=== PATIENT | female | born 1950 | race Caucasian/White ===

== ENCOUNTER 2018-07-28 13:24 | Inpatient (IN) | payer BC, MEDICARE ==
[~2018-07-28] VITALS: Ht 170.2 cm; Wt 127.0 kg
--- NOTE | ~2018-07-28 | HEMODYNAMI ---
PATIENT:HERO ROBERSON MEDICAL RECORD: [id number] : 48 LOCATION:D.MS [id number] ADMISSION DATE: 07/28/18 Generatedon:07/30/201811:33 Patient name: HERO ROBERSON Patient #: [id number] SSN: D OB: 1950 Date of study: 07/30/2018 Page: Of Hemodynamic Procedure Report Patient Data Patient Demographics Procedure consent was obtained First Name: HERO Gender: Female Last Name: DA : 1950 Patient #: [id number] Age: 68 year(s) Race: Unknown Additional ID: [id number] Contact details [address]: [address] [place] [address] State: [place] City: [place] Zip code: [address] Past Medical History Allergies: No known allergies Admission Admission Data Admission Date: 07/28/2018 Admission Time: 17:47 Room #: [id number] Lab Results Lab Result Date: 07/30/2018 Lab Result Time: 5:13 Biochemistry Name Units Result Min Max BUN mg/dl 18 --(---*)-- 7 18 Creatinine mg/dl 0.6 --(*---)-- 0.6 1.3 CBC Name Units Result Min Max Hematocrit % 41 -*(----)-- 42 54 Hemoglobin g/dl 12.9 -*(----)-- 13.5 17.5 Procedure Procedure Types Cath Procedure Diagnostic Procedure Right Heart RHC and LHC w/Coronaries Sedation Charges Moderate Sedation up to 30 minutes PCI Procedure Coronary Stent Coronary Stent Initial Procedure Description Procedure Date Procedure Date: 07/30/2018 Procedure Start Time: 11:00 Procedure End Time: 11:33 Procedure Staff Name Function Bi Benavides MD Performing Physician Bryce Mercedes RT Monitor Alejandra Novak RN Nurse Nazanin Calles RT Scrub Procedure Data Cath Procedure Fluoroscopy Diagnostic fluoroscopy Total fluoroscopy Time: 6.1 time: 6.1 min min Diagnostic fluoroscopy Total fluoroscopy dose: 717 dose: 717 mGy mGy Contrast Material Contrast Material Type Amount (ml) Isovue 300 112 Entry Location Entry Primary Successful Side Size Upsize Upsize Entry Closure Succes sful Closure Location (Fr) 1 (Fr) 2 (Fr) Remarks Device Remarks Femoral Right 5 Fr 6 Fr Exoseal artery Short Femoral Right 7 Fr Exoseal vein Short Estimated blood loss: 10 ml Diagnostic catheters Device Type Used For End Catheter Placement SWAN 7Fr Thermodilution Procedure cather (131F7P) MULTIPACK JL 4.0 5Fr Procedure catheter MULTIPACK 3DRC 5Fr Procedure catheter MULTIPACK Pigtail 5 Fr Procedure catheter Procedure Complications No complications Procedure Medications Medication Administration Route Dosage 0.9% NaCl I.V. 100 ml/hr Lidocaine 2% added to field 20 Heparin Flush Bag added to field 2 bags (1000units/500ml NS) Benadryl I.V. 50 mg Versed I.V. 2 mg Fentanyl I.V. 25 mcg Oxygen etCO2 Nasal cannula 4 l/min Heparin Bolus I.V. 09497 units Plavix P.O. 600 mg Nitroglycerin IC/IA I.C. 100 mcg Hemodynamics Rest HGB: 12.9 (g/dl) Heart Rate: 90 (bpm) Oxygen Saturations Time Location Saturations Hgb (g/dl) O2 Content Use (%) (ml/L) 11:06 PA 72.7 11:07 RV 72.9 11:09 RA 72.2 Pressure Samples Time Site Value (mmHg) Purpose Heart Use Rate(bpm) 11:05 PA 38/16(25) Snapshot 90 11:06 PCW 19/9(16) Snapshot 91 11:07 RV 41/7,11 Snapshot 91 11:07 RA 14/13(12) Snapshot 91 11:15 LV 156/0,23 Snapshot 98 11:16 AO 151/79(111) Pullback 93 11:16 LV 157/3,25 Pullback 93 Gradients Valve Time Site 1 Site 2 Mean SEP/DFP Peak To Heart Use (mmHg) (sec/min) Peak Rate (mmHg) (bpm) Aortic 11:16 LV AO 17 18 6 93 157/3,25 151/79(111) Calculations Content (ml/l) O2 Difference (ml/l) O2 MV 126.67 PV-PA(VA) O2 PA 127.54 PV-MV(VV) Valve P-P Mean Valve Index Valve Source Name Gradient Area Flow (cm2) Aortic 6 17 6 17 Snapshots Pre Cath Intra NCS Post Cath Vital Signs Time Heart Resp SPO2 etCO2 NIBP (mmHg) Rhythm Pain Sedation Rate (ipm) (%) (mmHg) Status Level (bpm) 10:44:08 92 16 92 22 184/99(135) NSR 0 (11) 10(A) , No pain 10:48:46 93 15 92 24.2 186/94(134) NSR 0 (11) 10(A) , No pain 10:53:29 91 18 93 28.4 181/97(135) NSR 0 (11) 10(A) , No pain 10:58:03 86 16 92 32.9 156/91(135) NSR 0 (11) 10(A) , No pain 11:02:36 86 16 92 29.2 167/87(134) NSR 0 (11) 10(A) , No pain 11:07:14 91 17 90 35.9 169/86(132) NSR 0 (11) 10(A) , No pain 11:11:51 93 16 95 32 165/88(115) NSR 0 (11) 9(A) , No pain 11:16:21 89 13 96 14.2 152/78(106) NSR 0 (11) 9(A) , No pain 11:20:52 90 14 95 18.9 162/90(130) NSR 0 (11) 9(A) , No pain 11:25:24 90 14 96 31.4 160/84(114) NSR 0 (11) 9(A) , No pain 11:29:50 94 16 95 34.9 137/83(106) NSR 0 (11) 10(A) , No pain Medications Time Medication Route Dose Verified Delivered Reason Notes Effectiveness by by 10:42:22 0.9% NaCl I.V. 100 Bi Alejandra used for ml/hr Kennedy Novak hammer heater 10:42:34 Lidocaine 2% added 20ml Bi Bi for local to vial Kennedy Benavides MD anesthetic field 10:42:38 Heparin Flush added 2 Bi Bi used for Bag to bags Kennedy Benavides MD procedure (1000units/500ml field NS) 10:44:02 Benadryl I.V. 50 mg Bi Alejandra Per physician Kennedy Novak RN 11:09:30 Oxygen etCO2 4 Bi Alejandra used for Nasal l/min Kennedy Novak procedure cannula RN 11:09:49 Versed I.V. 2 mg Bi Alejandra for sedation Kennedy Novak RN 11:09:55 Fentanyl I.V. 25 Bi Alejandra for sedation mcg Kennedy Novak RN 11:23:10 Heparin Bolus I.V. 88491 Bi Alejandra for units Kennedy Novak anticoagulation RN 11:24:54 Plavix P.O. 600 Bi Alejandra for mg Kennedy Novak antiplatelet RN therapy 11:26:40 Nitroglycerin I.C. 100 Bi Alejandra for IC/IA mcg Kennedy Novak vasodilation concession worker Log Time Note 10:04:56 Time tracking: Regular hours (M-F 7:00 - 5:00) 10:05:00 Plan of Care:Hemodynamics will remain stable., Cardiac rhythm will remain stable., Comfort level will be maintained., Respiratory function will remain adequate., Patient/ family verbilizes understanding of procedure., Procedure tolerated without complication., Recovers from procedure without complications.. 10:15:25 Lab Result : Creatinine 0.6 mg/dl 10:15:25 Lab Result : BUN 18 mg/dl 10:15:25 Lab Result : Hemoglobin 12.9 g/dl 10:15:25 Lab Result : Hematocrit 41 % 10:15:28 Lab results completed and on chart. 10:20:35 Alejandra Novak RN sent for patient. Start room use. 10:33:07 Patient received from Med/Surg to CCL 1 Alert and oriented. Tansferred to table in Supine position. 10:33:08 Warm blankets applied, and dora hugger turned on for patient comfort. 10:33:09 Correct patient and procedure confirmed by team. 10:33:11 Signed procedure consent form obtained from patient. 10:33:12 ECG and BP/O2 sat monitors applied to patient. 10:33:13 Full Disclosure recording started 10:42:22 0.9% NaCl 100 ml/hr I.V. was administered by Alejandra Novak RN; used for procedure; 10:42:34 Lidocaine 2% 20ml vial added to field was administered by Bi Benavides MD; for local anesthetic; 10:42:38 Heparin Flush Bag (1000units/500ml NS) 2 bags added to field was administered by Bi Benavides MD; used for procedure; 10:42:57 Vital chart was started 10:44:02 Benadryl 50 mg I.V. was administered by Alejandra Novak RN; Per physician; 10:46:16 Baseline sample Acquired. 10:46:18 Rhythm: sinus rhythm 10:46:40 H&P Date Dictated: 07/28/2018 Within 30 days and on chart.. 10:46:41 Pre-procedure instructions explained to patient. 10:46:42 Pre-op teaching completed and patient verbalized understanding. 10:46:43 Family in patients room. 10:46:48 Patient NPO since Midnight. 10:46:52 No supplemental O2 given during RHC, pt SpO2 92-94% on RA upon arrival. Will place supplemental O2 on pt upon beginning of LHC. 10:46:53 Patient allergic to No known allergies 10:48:28 Is the patient allergic to Iodine/contrast media? No. 10:48:29 Is patient on blood thinner?No 10:48:30 Patient diabetic? Yes. 10:48:32 If diabetic: On Metformin? Yes 10:48:50 If on Metformin: Last Dose? 07/28/2018 10:48:53 Previous problem with sedation/anesthesia? No ? 10:49:00 Snore? Yes 10:49:01 Sleep apnea? Yes 10:49:02 Deviated septum? No 10:49:02 Opens mouth fully? Yes 10:49:03 Sticks out tongue? Yes 10:49:05 Airway obstruction? No ? 10:49:10 Dentures? No . 10:49:14 Pre procedure: right dorsailis pedis pulse 2+ Normal; easily identifiable; not easily obliterated 10:49:15 Patient pain scale 0/10 ?. 10:49:20 IV patent on arrival in left forearm with 0.9% NaCl at KVO. 10:49:27 Right groin area was prepped with chlora-prep and draped in sterile fashion 10:49:28 Alarms reviewed by R. N. 10:49:28 Sharps counted by scrub and verified by R.N. 10:49:31 Use device set Femoral Dx 10:49:32 ACIST Syringe (47118) opened to sterile field. 10:49:32 Bag Decanter (2001S) opened to sterile field. 10:49:33 SHEATH 7FR Preston (OSU937) opened to sterile field. 10:49:33 Medline Cath Pack ([id number]) opened to sterile field. 10:49:33 ACIST Manifold (64290) opened to sterile field. 10:49:34 ACIST Hand Control (37205) opened to sterile field. 10:49:36 Tegaderm 4 x 4 (1626W) opened to sterile field. 10:49:37 SHEATH 5FR Preston (CYD827) opened to sterile field. 10:49:37 DIAGNOSTIC Multipack 5Fr catheter set (LP8102) opened to sterile field. 10:49:38 DIAGNOSTIC WIRE .035 260cm J wire (433052) opened to sterile field. 10:54:01 Physician arrived 10:54:01 --------ALL STOP TIME OUT------ 10:54:02 Final Timeout: patient, procedure, and site verified with staff and physician. All members of the team are in agreement. 10:54:03 Right groin site verified by team. 10:54:05 Physical assessment completed. ASA score P 2 - A patient with mild systemic disease as per Bi Benavides MD. 10:54:07 Sedation plan: IV Moderate Sedation Medication:Versed, Fentanyl 10:54:10 Zero performed for pressure channel P1 11:00:56 Procedure started. 11:00:58 Local anesthetic to right femoral artery with Lidocaine 2% by Bi Benavides MD.INITIAL ACCESS ONLY 11:03:06 A 5 Fr sheath was inserted into the Right Femoral artery 11:03:10 A 7 Fr Short sheath was inserted into the Right Femoral vein 11:04:15 A SWAN 7Fr Thermodilution cather (131F7P) was advanced over the wire and used for Procedure. 11:06:49 PA saturation: 72.7% 11:07:32 RV saturation: 72.9% 11:08:41 Catheter removed. 11:09:05 RA saturation: 72.2% 11:09:25 A MULTIPACK JL 4.0 5Fr catheter was advanced over the wire and used for Procedure. 11:09:30 Oxygen 4 l/min etCO2 Nasal cannula was administered by Alejandra Kishore RN; used for procedure; 11:09:49 Versed 2 mg I.V. was administered by Alejandra Novak RN; for sedation; 11:09:51 LCA angiography performed. 11:09:55 Fentanyl 25 mcg I.V. was administered by Alejandra Novak RN; for sedation; 11:10:52 Catheter exchanged over wire. 11:10:57 A MULTIPACK 3DRC 5Fr catheter was advanced over the wire and used for Procedure. 11:11:53 RCA angiography performed. 11:13:45 Catheter exchanged over wire. 11:13:51 A MULTIPACK Pigtail 5 Fr catheter was advanced over the wire and used for Procedure. 11:14:18 BMW 300cm Gause 2 J wire ([id number]) opened to sterile field. 11:14:19 INFLATOR Merit BasixCompak (LS7830) opened to sterile field. 11:14:20 SHEATH 6FR Preston (NPD641) opened to sterile field. 11:14:40 GUIDE 6FR 3DRC catheter (DH48MWJ) opened to sterile field. 11:16:04 LV gram done using HARKINS 11:16:06 Injector settings: Ml/sec: 10, Volume: 20, 11:16:08 LV hemodynamics recorded. 11:16:12 EF : 60 % 11:16:25 Catheter removed. 11:16:36 Sheath upsized to a 6 Fr Short. 11:17:26 TUBING High Pressure Extension Tubing (Benavides) (FN3090S) opened to sterile field. 11:19:01 6 Fr 3drc guide catheter was inserted over the wire 11:22:26 BMW wire advanced. 11:22:27 Wire advanced across lesion. 11:23:10 Heparin Bolus 65863 units I.V. was administered by Alejandra Novak RN; for anticoagulation; 11:24:46 Place stent Inflation Number: 1 A INTEGRITY OTW 3.0 X 22 stent ([id number]) was prepped and advanced across the Mid RCA. The stent was deployed at 16 URMILA for 0:10 (min:sec). 11:24:54 Plavix 600 mg P.O. was administered by Alejandra Novak RN; for antiplatelet therapy; 11:26:35 Stent catheter was removed intact over wire. 11:26:40 Nitroglycerin IC/IA 100 mcg I.C. was administered by Alejandra Novak RN; for vasodilation; 11:28:09 Wire removed. 11:28:10 Guide catheter removed. 11:28:27 EXOSEAL 7Fr (EX700) opened to sterile field. 11:28:28 EXOSEAL 6Fr (EX600) opened to sterile field. 11:28:43 Sheath removed intact; hemostasis achieved with Exoseal to the Right Femoral artery. 11:28:46 Sheath removed intact; hemostasis achieved with Exoseal to the Right Femoral vein. 11:28:48 Procedure ended.(Physican Out) 11::55 Fluoroscopy time 06.10 minutes. 11::59 Fluoroscopy dose: 717 mGy 11::59 Flurop Dose total: 717 11:29:02 Contrast amount:Isovue 300 112ml. 11:29:03 Sharps counted by scrub and verified by R.N. 11:29:04 Insertion/operative site no bleeding no hematoma. 11:29:06 Post-op/insertion site Right Femoral artery dressed using a 4 x 4 and Tegaderm. 11:29:10 Post-op/insertion site Right Femoral vein dressed using a 4 x 4 and Tegaderm. 11:29:13 Post right femoral artery:stable, soft, clean and dry 11:29:21 Post right femoral vein:stable, soft, clean and dry 11:29:30 Post Procedure Pulses reassessed and unchanged 11:29:32 Post-procedure physical assessment completed. ASA score P 2 - A patient with mild systemic disease as per Bi Benavides MD. 11:29:34 Post procedure rhythm: unchanged. 11:29:36 Estimated blood loss: 10 ml 11:29:37 Post procedure instruction explained to patient.Patient verbalizes understanding. 11:29:38 Patient needs reinforcement of post procedure teaching. 11:29:47 Procedure type changed to Cath procedure, Diagnostic procedure, Right Heart, RHC and LHC w/Coronaries, Sedation Charges, Moderate Sedation up to 30 minutes, PCI procedure, Coronary Stent, Coronary Stent Initial 11:32:56 Procedure and supply charges have been captured, reviewed, submitted and are correct. 11:32:58 Procedure Complication : No complications 11:33:00 Vital chart was stopped 11:33:01 See physician's report for complete and final results. 11:33:03 Report given to Pre/Post Procedure Room. 11:33:05 Patient transfered to Pre/Post Procedure Room with Stretcher. 11:33:08 Procedure ended. 11:33:08 Full Disclosure recording stopped 11:33:12 End room use (Document Last) Intervention Summary Intervention Notes Time ActionType Lesion and Equipment Action# Pressure Duration Attributes Used 11:24:46 Place stent Mid RCA INTEGRITY 1 16 00:10 OTW 3.0 X 22 stent ([id number]) Device Usage Item Name Manufacture Quantity Catalog Hospital Part Current Minima l Lot# / Number Charge Number Stock Stock Serial# Code ACIST Syringe Acist 1 10351 931881 707779 340362 20 (36783) Medical Systems Inc Bag Decanter Microtek 1 2001S 108743 20262 076206 5 (2001S) Medical Inc. Medline Cath Medline 1 [id number] 299819 93946 268841 5 Pack ([id number]) ACIST Manifold Acist 1 28819 539525 284891 497772 5 (41133) Medical Systems Inc ACIST Hand Acist 1 86807 667955 399749 746745 5 Control Medical (65384) Systems Inc Tegaderm 4 x 4 3M 1 1626W 676095 435162 869712 5 (1626W) SHEATH 5FR Terumo 1 OKN324 565004 677425 196150 5 Preston (NQN447) DIAGNOSTIC Cardinal 1 ZG4499 583418 66463 304260 30 Multipack 5Fr Health catheter set (KV8745) DIAGNOSTIC St Devin 1 215503 860630 085767 468371 30 WIRE .035 260cm J wire (203881) SWAN 7Fr Nunez 1 131F7P 097448 14939 427416 3 Thermodilution Lifesciences cather (131F7P) MULTIPACK JL Cardinal 1 773166 5 4.0 5Fr Health catheter MULTIPACK 3DRC Cardinal 1 697762 5 5Fr catheter Health MULTIPACK Cardinal 1 155835 5 Pigtail 5 Fr Health catheter BMW 300cm Gregory 1 [id number] 858198 736598 210055 5 Gause 2 J Vascular wire (5328444P) INFLATOR Merit Merit 1 OU7061 472949 033082 379439 15 Anvato (MP0607) SHEATH 6FR Terumo 1 QWX016 453129 731238 106181 40 Preston (WDO494) GUIDE 6FR 3DRC Medtronic 1 OS03LGA 532890 455815 697347 1 catheter (QP69RND) TUBING High Merit 1 [id number] 890012 86314 969661 10 Pressure Medical Extension Tubing (Benavides) (QC0774X) INTEGRITY OTW Medtronic 1 [id number] 869815 862125 1 [id number] 3.0 X 22 stent ([id number]) EXOSEAL 7Fr Cardinal 1 EX700 027467 463876 889613 5 (EX700) Health EXOSEAL 6Fr Cardinal 1 EX600 110333 255540 641287 10 (EX600) Health SHEATH 7FR Terumo 1 ONS207 833416 487843 639970 5 Preston (ZYX549) Signature Audit [place] Stage Time Signature Unsigned Intra-Procedure 07/30/2018 Bryce Mercedes 11:33:56 AM RT(R) Signatures Monitor : Bryce Mercedes RT Signature : Date : Time : [place] [id number] [place] [id number]
[~2018-07-28 13:24] MED LIST: VIBRAMYCIN 100100 MG PO
[2018-07-28] MEDS ORDERED: PRAVACHOL20 MG PO (20:09)
[2018-07-28] MEDS ORDERED: OMEPRAZOLE20 M1 PO (20:10)
[2018-07-28] MEDS ORDERED: CYCLOBENZAPRINE10 MG PO (20:11)
[2018-07-28] MEDS ORDERED: TYLENOL W/CODEI1 TAB PO (20:12)
[2018-07-28] MEDS ORDERED: CALAN SR240 MG PO (20:13)
[2018-07-28] MEDS ORDERED: GLUCOPHAGE500 MG PO (20:14)
[2018-07-28] MEDS ORDERED: CELEXA20 MG PO (20:15)
[2018-07-28] MEDS ORDERED: GABAPENTIN100 MG PO (20:16)
[2018-07-28] MEDS ORDERED: TRAZODONE HCL100 MG PO (20:16)
[2018-07-28] MEDS ORDERED: POTASSIUM CHLOR8 ME1 PO (20:17)
[2018-07-28] MEDS ORDERED: VICTOZA0.6 MG/0.1 SQ (20:18)
[2018-07-28] MEDS ORDERED: IPRAT-ALBUT 0.5-3 ML UPD (20:20)
[2018-07-28] MEDS ORDERED: VENTOLIN HFA18 GM INH (20:20)
[2018-07-28] MEDS ORDERED: REQUIP1 MG PO ×2 (20:21→20:22)
[2018-07-28] MEDS ORDERED: VITAMIN D31000 UNIT PO (20:25)
[2018-07-28 20:42] VITALS: BP 166/74
[2018-07-28] MEDS ORDERED: FUROSEMIDE40 MG PO (23:51)
[2018-07-28 23:53] VITALS: BMI 43.9
[2018-07-29 04:32] VITALS: BP 178/86
[2018-07-29 08:25] LABS: BASOPHILS 0.1 % (0-2); EOSINOPHILS 2.1 % (0-7); HEMATOCRIT 39.2 % (36.0-48.0); HEMOGLOBIN 12.2 g/dL (12-16); IMMATURE GRANULOCYTES 0.4 % (0-5); LYMPHOCYTES 24.2 % (15-50); MCHC 31.1 g/dL (31.0-37.0); MCV 93.1 fL (80.0-100.0); MEAN PLATELET VOLUME 10.1 fL (7.4-10.4); MONOCYTES 7.7 % (2-11); NEUTROPHILS 65.5 % (40-80); PLATELET COUNT 290 10x3/uL (130-400); RBC 4.21 10x6/uL (4.00-5.40); RDW 14.3 % (11.5-14.5); WBC 8.1 10x3/uL (4.8-10.8)
[2018-07-29 08:38] LABS: CALC OSMOLALITY 282 mosm/kg (275-300); CALCIUM 8.8 mg/dL (8.5-10.1); CARBON DIOXIDE 29.2 mmol/L (21.0-32.0); CHLORIDE - SERUM 104 mmol/L (98-107); CREATININE - SERUM 0.6 mg/dL (0.6-1.3); GLUCOSE 75 mg/dL (74-106); POTASSIUM - SERUM 3.5 mmol/L (3.5-5.1); SODIUM 142 mmol/L (136-145); UREA NITROGEN 16 mg/dL (7-18); eGFR NON AFRICAN AMERICAN > 90 mL/min (90-120)
[2018-07-29 08:48] VITALS: BP 176/83
[2018-07-29 16:10] VITALS: BP 144/86
[2018-07-29 18:12] LABS: BASOPHILS 0.2 % (0-2); EOSINOPHILS 6.1 % (0-7); HEMATOCRIT 40.2 % (36.0-48.0); HEMOGLOBIN 12.7 g/dL (12-16); IMMATURE GRANULOCYTES 0.3 % (0-5); LYMPHOCYTES 20.8 % (15-50); MCH 29.4 pg (26.0-34.0); MCHC 31.6 g/dL (31.0-37.0); MCV 93.1 fL (80.0-100.0); MEAN PLATELET VOLUME 9.2 fL (7.4-10.4); MONOCYTES 5.5 % (2-11); NEUTROPHILS 67.1 % (40-80); PLATELET COUNT 286 10x3/uL (130-400); RBC 4.32 10x6/uL (4.00-5.40); RDW 13.9 % (11.5-14.5)
[2018-07-29 18:25] LABS: CALC OSMOLALITY 281 mosm/kg (275-300); CALCIUM 8.6 mg/dL (8.5-10.1); CARBON DIOXIDE 30.9 mmol/L (21.0-32.0); CHLORIDE - SERUM 102 mmol/L (98-107); CREATININE - SERUM 0.7 mg/dL (0.6-1.3); POTASSIUM - SERUM 3.6 mmol/L (3.5-5.1); SODIUM 140 mmol/L (136-145); UREA NITROGEN 17 mg/dL (7-18); eGFR NON AFRICAN AMERICAN 88 mL/min (90-120)
[2018-07-29 18:27] LABS: GLUCOSE 125 mg/dL (74-106)
[2018-07-29 20:45] VITALS: BP 156/70
[2018-07-30 00:27] VITALS: BP 141/75
[2018-07-30 04:41] VITALS: BP 140/80
[2018-07-30 05:52] LABS: BASOPHILS 0.1 % (0-2); EOSINOPHILS 0.3 % (0-7); HEMOGLOBIN 12.9 g/dL (12-16); IMMATURE GRANULOCYTES 0.2 % (0-5); LYMPHOCYTES 8.2 % (15-50); MCH 28.9 pg (26.0-34.0); MCHC 31.5 g/dL (31.0-37.0); MCV 91.9 fL (80.0-100.0); MEAN PLATELET VOLUME 9.5 fL (7.4-10.4); NEUTROPHILS 90.2 % (40-80); PLATELET COUNT 313 10x3/uL (130-400); RBC 4.46 10x6/uL (4.00-5.40); RDW 13.7 % (11.5-14.5)
[2018-07-30 06:25] LABS: CALC OSMOLALITY 282 mosm/kg (275-300); CALCIUM 8.9 mg/dL (8.5-10.1); CARBON DIOXIDE 28.9 mmol/L (21.0-32.0); CHLORIDE - SERUM 103 mmol/L (98-107); CREATININE - SERUM 0.6 mg/dL (0.6-1.3); GLUCOSE 129 mg/dL (74-106); MAGNESIUM - SERUM 2.4 mg/dL (1.8-2.4); PHOSPHOROUS 3.5 mg/dL (2.5-4.9); SODIUM 140 mmol/L (136-145); UREA NITROGEN 18 mg/dL (7-18); eGFR NON AFRICAN AMERICAN > 90 mL/min (90-120)
[2018-07-30 06:26] LABS: POTASSIUM - SERUM 4.4 mmol/L (3.5-5.1)
[2018-07-30 08:49] VITALS: BP 158/72
[2018-07-30] MEDS ORDERED: PLAVIX75 MG PO (12:18)
[2018-07-30] MEDS ORDERED: Nicoderm [PBKC] TRANSDERM (12:18)
[2018-07-30] MEDS ORDERED: DALIRESP500 MCG PO (12:19)
[2018-07-30] MEDS ORDERED: MUCINEX DM ER1 EAC1 PO (12:19)
[2018-07-30] MEDS ORDERED: BENZONATATE200 MG PO (12:19)
[2018-07-30] MEDS ORDERED: SINGULAIR10 MG PO (12:19)
[2018-07-30] MEDS ORDERED: PULMICORT0.5 MG/21 UPD (12:19)
[2018-07-30] MEDS ORDERED: FLORAJEN3 CAPS460 MG PO (12:20)
[2018-07-30] MEDS ORDERED: VIBRAMYCIN 100100 MG PO (12:20)
[2018-07-30 12:50] VITALS: Ht 170.2 cm; Wt 127.0 kg
--- NOTE | 2018-07-30 14:26 | MORECARE ---
CASE MANAGEMENT DISCHARGE SUMMARY PATIENT: HERO ROBERSON UNIT: [id number] ADM DATE: 07/28/18 AGE: 68 : 49 SEX: F ROOM/BED: D.2205 AUTHOR: GURU VALENTINE PHYSICIAN: REFERRING PHYSICIAN: CHILO BENITEZ MD DATE OF SERVICE: 07/30/18 Discharge Plan Patient Name: HERO ROBERSON [facility] : 1950 Planned Disposition: Anticipated Discharge Date: Discharge Date: Expected LOS: Initial Reviewer: [email or web address] Initial Review Date: 07/28/2018 Generated: 07/30/18 3:26 pm Comments DCP- Discharge Planning Updated by [email or web address]: Ana Reid on 07/30/18 1:[address] ATTEMPTED TO SEE PATIENT FOR DISCHARGE PLANNING NEEDS, PATIENT WAS NOT IN HIS ROOM HE WAS IN A PROCEDURE. CM WILL CONTINUE TO FOLLOW AND ASSIST WITH DC PLANNING Patient Name: HERO ROBERSON Page [id number] at 1426 All edits/amendments must be made on the electronic document DICTATION DATE: 07/30/18 142 GRINDER CHIPPER: MAINOR 07/30/18 142 RPT#: [id number] DC DATE: STATUS: ADM IN [facility] [address] [place] [address] END OF REPORT
[2018-07-30] MEDS ORDERED: BAYER CHEWABLE81 MG PO (15:32)
--- NOTE | 2018-07-30 16:41 | MORECARE ---
CASE MANAGEMENT DISCHARGE SUMMARY PATIENT: HERO ROBERSON UNIT: [id number] ADM DATE: 07/28/18 AGE: 68 : 49 SEX: F ROOM/BED: D.2205 AUTHOR: GURU VALENTINE PHYSICIAN: REFERRING PHYSICIAN: CHILO BENITEZ MD DATE OF SERVICE: 07/30/18 Discharge Plan Patient Name: HERO ROBERSON Facility: [facility]:[place] : 1950 Planned Disposition: Home Anticipated Discharge Date: Discharge Date: Expected LOS: Initial Reviewer: [email or web address] Initial Review Date: 07/28/2018 Generated: 07/30/18 5:41 pm Comments DCP- Discharge Planning Updated by [email or web address]: Ana Reid on 07/30/18 1:[address] ATTEMPTED TO SEE PATIENT FOR DISCHARGE PLANNING NEEDS, PATIENT WAS NOT IN HIS ROOM HE WAS IN A PROCEDURE. CM WILL CONTINUE TO FOLLOW AND ASSIST WITH DC PLANNING DCPIA - Discharge Planning Initial Assessment Updated by [email or web address]: Joana Karimi on 07/30/18 4:39 pm * Is the patient Alert and Oriented? Yes * How many steps to enter\exit or inside your home? 2/0 * PCP Dr. Delacruz in [place] * [facility]acy [facility] in [place] * Preadmission Environment Home with Family * ADLs Partial Dependent * Partial ADLs (Assistance needed) Ambulation Medication Management * Equipment Cane Nebulizer Walker * List name and contact numbers for known caregivers / representatives who currently or will assist patient after discharge: Harlan Roberson - [facility] - [phone] * Verbal permission to speak to the caregivers and representatives has been obtained from the patient. Yes * Community resources currently utilized None * Additional services required to return to the preadmission environment? No * Can the patient safely return to the preadmission environment? Yes * Has this patient been hospitalized within the prior 30 days at any hospital? No Last DP export: 07/30/18 1:26 pm Patient Name: HERO ROBERSON Page [id number] at 1641 All edits/amendments must be made on the electronic document DICTATION DATE: 07/30/18 1640 OCULAR PATHOLOGIST: DM 07/30/18 1640 RPT#: [id number] DC DATE: STATUS: ADM IN [facility] [address] [place] [address] END OF REPORT
--- NOTE | 2018-07-30 16:51 | MORECARE ---
CASE MANAGEMENT DISCHARGE SUMMARY PATIENT: HERO ROBERSON UNIT: [id number] ADM DATE: 07/28/18 AGE: 68 : 49 SEX: F ROOM/BED: D.2205 AUTHOR: MEME,DOC PHYSICIAN: REFERRING PHYSICIAN: CHILO BENITEZ MD DATE OF SERVICE: 07/30/18 Discharge Plan Patient Name: HERO ROBERSON Facility: [facility]:[place] : 1950 Planned Disposition: Home Anticipated Discharge Date: Discharge Date: Expected LOS: Initial Reviewer: [email or web address] Initial Review Date: 07/28/2018 Generated: 07/30/18 5:51 pm Comments DCP- Discharge Planning Updated by [email or web address]: Joana Karimi on 07/30/18 3:[address] Patient Name: HERO ROBERSON Admission Status: Elective Accout number: [id number] Admission Date: 07-28-2018 : 1950 Admission Diagnosis: Attending: CHILO BENITEZ Current LOS: 2 Anticipated DC Date: Planned Disposition: Home Primary Insurance: [employer] OUT OF STATE Discharge Planning Comments: CM met with patient and her . She is post stent, not wearing any oxygen. States she does have a nebulizer that she gets supplies from [employer]. States she gets the med from [facility] in [place]. Her sets up her medications for her. She walks unaided unless she goes out, then she uses her cane or walker. Denies need for home health services. Her states she no longer drives, but he drives her where she needs to go. No needs identified. CM will continue to follow and assist with discharge planning/needs. Turret Lathe Tender: Joana Karimi DCP- Discharge Planning Updated by [email or web address]: Ana Reid on 07/30/18 1:[address] ATTEMPTED TO SEE PATIENT FOR DISCHARGE PLANNING NEEDS, PATIENT WAS NOT IN HIS ROOM HE WAS IN A PROCEDURE. CM WILL CONTINUE TO FOLLOW AND ASSIST WITH DC PLANNING DCPIA - Discharge Planning Initial Assessment Updated by [email or web address]: Joana Karimi on 07/30/18 4:39 pm * Is the patient Alert and Oriented? Yes * How many steps to enter\exit or inside your home? 2/0 * PCP Dr. Delacruz in [place] * Pharmacy [facility] in [place] * Preadmission Environment Home with Family * ADLs Partial Dependent * Partial ADLs (Assistance needed) Ambulation Medication Management * Equipment Cane Nebulizer Walker * List name and contact numbers for known caregivers / representatives who currently or will assist patient after discharge: Harlan Roberson - [facility] - [phone] * Verbal permission to speak to the caregivers and representatives has been obtained from the patient. Yes * Community resources currently utilized None * Additional services required to return to the preadmission environment? No * Can the patient safely return to the preadmission environment? Yes * Has this patient been hospitalized within the prior 30 days at any hospital? No Last DP export: 07/30/18 3:41 pm Patient Name: HERO ROBERSON Page [address]8488 at 1651 All edits/amendments must be made on the electronic document DICTATION DATE: 07/30/181650 CUSTOM SHOEMAKER: MAINOR 07/30/181650 RPT#: [id number] DC DATE: STATUS: ADM IN [facility] [address] [place] [address] END OF REPORT
[2018-07-31 09:17] LABS: IMMUNOGLOBULIN A 248 mg/dL (87-352); IMMUNOGLOBULIN G 789 mg/dL (700-1600)
[2018-08-02 14:30] LABS: IMMUNOGLOBULIN E 227 IU/mL (0-100)
== END 2018-07-30 18:12 | disposition home or self-care (01) | DRG 248 ==
LOC: D.MS 13:24
PROVIDERS: Internal Medicine Cardiovascular Disease; Internal Medicine Pulmonary Disease; ADMIT Internal Medicine Nephrology
PROC: B2151ZZ Fluoroscopy of Left Heart using Low Osmolar Contrast (ICD-10-PCS; 2018-07-30)
PROC: 02703DZ Dilation of Coronary Artery, One Artery with Intraluminal Device, Percutaneous Approach (ICD-10-PCS; principal; 2018-07-30 10:30)
PROC: 4A023N7 Measurement of Cardiac Sampling and Pressure, Left Heart, Percutaneous Approach (ICD-10-PCS; 2018-07-30 10:30)
PROC: B2111ZZ Fluoroscopy of Multiple Coronary Arteries using Low Osmolar Contrast (ICD-10-PCS; 2018-07-30 10:30)
DX: I25.119 Atherosclerotic heart disease of native coronary artery with unspecified angina pectoris (principal); J96.22 Acute and chronic respiratory failure with hypercapnia; J44.1 Chronic obstructive pulmonary disease with (acute) exacerbation; J30.9 Allergic rhinitis, unspecified; K21.9 Gastro-esophageal reflux disease without esophagitis; E11.40 Type 2 diabetes mellitus with diabetic neuropathy, unspecified; E11.51 Type 2 diabetes mellitus with diabetic peripheral angiopathy without gangrene; I10 Essential (primary) hypertension; G47.33 Obstructive sleep apnea (adult) (pediatric); G25.81 Restless legs syndrome; F41.8 Other specified anxiety disorders; E55.9 Vitamin D deficiency, unspecified

== ENCOUNTER → 2019-02-26 10:09 | Outpatient (CLI) | payer MEDICARE, OTHER ==
[2018-07-30 12:50] VITALS: BMI 43.8
[~2019-02-26 10:09] MED LIST changes: +BAYER CHEWABLE81 MG PO; +BENZONATATE200 MG PO; +CALAN SR240 MG PO; +CELEXA20 MG PO; +CYCLOBENZAPRINE10 MG PO; +DALIRESP500 MCG PO; +FLORAJEN3 CAPS460 MG PO; +FUROSEMIDE40 MG PO; +GABAPENTIN100 MG PO; +GLUCOPHAGE500 MG PO; +IPRAT-ALBUT 0.5-3 ML UPD; +MUCINEX DM ER1 EAC1 PO; +Nicoderm [PBKC] TRANSDERM; +OMEPRAZOLE20 M1 PO; +PLAVIX75 MG PO; +POTASSIUM CHLOR8 ME1 PO; +PRAVACHOL20 MG PO; +PULMICORT0.5 MG/21 UPD; +REQUIP1 MG PO; +SINGULAIR10 MG PO; +TRAZODONE HCL100 MG PO; +TYLENOL W/CODEI1 TAB PO; +VENTOLIN HFA18 GM INH; +VICTOZA0.6 MG/0.1 SQ; +VITAMIN D31000 UNIT PO
== END | disposition home or self-care (01) ==
LOC: D.RT 10:09
PROVIDERS: ATTEND Internal Medicine Pulmonary Disease
DX: J44.9 Chronic obstructive pulmonary disease, unspecified (principal)

== ENCOUNTER 2019-04-10 12:05 | Outpatient (CLI) | payer MEDICARE, OTHER ==
[~2019-04-10] VITALS: Ht 170.2 cm; Wt 130.9 kg
--- NOTE | ~2019-04-10 | HEMODYNAMI ---
PATIENT:HERO ROBERSON MEDICAL RECORD: [id number] : 48 LOCATION:[facility] ADMISSION DATE: 04/10/19 Generatedon:04/10/201916:38 Patient name: HERO ROBERSON Patient #: [id number] SSN: D OB: 1950 Date of study: 04/10/2019 Page: Of Hemodynamic Procedure Report Patient Data Patient Demographics Procedure consent was obtained First Name: HERO Gender: Female Last Name: DA : 1950 Patient #: [id number] Age: 68 year(s) Race: Unknown Additional ID: [id number] Contact details [address]: [address] [place] [address] State: [place] City: [place] Zip code: [address] Past Medical History Allergies: No known allergies Admission Admission Data Admission Date: 04/10/2019 Admission Time: 12:05 Height (in.): 67 BSA: 2.36 (m2) Height (cm.): 170.18 BMI: 45.23 (kg/m2) Weight (lbs.): 288.81 Weight (kg.): 131 Lab Results Lab Result Date: 04/10/2019 Lab Result Time: 0:00 Biochemistry Name Units Result Min Max BUN mg/dl 13 --(--*-)-- 7 18 Creatinine mg/dl 0.9 --(-*--)-- 0.6 1.3 eGFR ml/min 66 *-(----)-- 90 120 NONAFRICAN CBC Name Units Result Min Max Hemoglobin g/dl 12.9 -*(----)-- 13.5 17.5 Procedure Procedure Types Cath Procedure Diagnostic Procedure [facility] w/Coronaries Sedation Charges Moderate Sedation up to 30 minutes PCI Procedure Coronary Stent Coronary Stent Initial Procedure Description Procedure Date Procedure Date: 04/10/2019 Procedure Start Time: 15:30 Procedure End Time: 16:10 Procedure Staff Name Function Alcides Amado RT Assistant Press Operator Offset Tanvir Mensah RN Assistant Press Operator Offset Bi Benavides MD Performing Physician Greer Fatima RT Monitor Alejandra Novak RN Nurse Gay Saucedo RT Scrub Procedure Data Cath Procedure Fluoroscopy Diagnostic fluoroscopy Total fluoroscopy Time: 7.1 time: 7.1 min min Diagnostic fluoroscopy Total fluoroscopy dose: dose: 1614 mGy 1614 mGy Contrast Material Contrast Material Type Amount (ml) Isovue 300 142 Entry Location Entry Primary Successful Side Size Upsize Upsize Entry Closure Succes sful Closure Location (Fr) 1 (Fr) 2 (Fr) Remarks Device Remarks Femoral Right 5 Fr Exoseal vein Femoral Right 5 Fr 6 Fr Exoseal artery Short Estimated blood loss: 10 ml Diagnostic catheters Device Type Used For End Catheter Placement MULTIPACK JL 4.0 5Fr Procedure catheter MULTIPACK 3DRC 5Fr Procedure catheter MULTIPACK Pigtail 5 Fr Procedure catheter Procedure Complications No complications Procedure Medications Medication Administration Route Dosage 0.9% NaCl I.V. 100 ml/hr Oxygen etCO2 Nasal cannula 2 l/min Lidocaine 2% added to field 20 Heparin Flush Bag added to field 2 bags (1000units/500ml NS) Versed I.V. 2 mg Fentanyl I.V. 50 mcg Heparin Bolus I.V. 61107 units Versed I.V. 0.5 mg Fentanyl I.V. 50 mcg Hemodynamics Rest BSA: 2.36 (m2) HGB: 12.9 (g/dl) O2 Consumption: Estimated: 237.35 (ml/min) O2 Co nsumption indexed: Estimated:100.57 (ml/min/m) Heart Rate: 92 (bpm) Pressure Samples Time Site Value (mmHg) Purpose Heart Use Rate(bpm) 15:46 LV 145/5,23 Snapshot 91 Gradients Valve Time Site Site Mean SEP/DFP Peak To Heart Use 1 2 (mmHg) (sec/min) Peak Rate (mmHg) (bpm) Aortic 15:46 LV AO 95 Snapshots Pre Cath Intra NCS Post Cath Vital Signs Time Heart Resp SPO2 etCO2 NIBP (mmHg) Rhythm Pain Sedation Rate (ipm) (%) (mmHg) Status Level (bpm) 14:57:20 91 12 98 47.1 147/57(100) NSR 0 (11) 10(A) , No pain 15:01:44 97 13 98 13.4 151/51(75) NSR 0 (11) 10(A) , No pain 15:05:50 101 12 98 19.4 119/72(89) NSR 0 (11) 10(A) , No pain 15:10:00 99 12 98 10.4 119/70(104) NSR 0 (11) 10(A) , No pain 15:14:18 96 13 98 0.7 125/57(90) NSR 0 (11) 10(A) , No pain 15:18:36 95 14 99 0 120/60(88) NSR 0 (11) 10(A) , No pain 15:22:46 91 24 99 40.4 119/61(92) NSR 0 (11) 10(A) , No pain 15:26:55 92 21 99 44.1 123/66(86) NSR 0 (11) 10(A) , No pain 15:35:50 90 16 96 48.6 105/74(84) NSR 0 (11) 9(A) , No pain 15:41:12 95 18 97 49.4 108/62(101) NSR 0 (11) 9(A) , No pain 15:47:24 93 11 97 47.9 114/69(94) NSR 0 (11) 9(A) , No pain 15:52:34 94 11 98 28.4 124/70(106) NSR 0 (11) 9(A) , No pain 15:56:50 96 12 98 50.8 123/58(101) NSR 0 (11) 9(A) , No pain 16:01:08 99 13 99 32.1 137/60(99) NSR 0 (11) 9(A) , No pain 16:06:31 100 19 99 35.1 142/61(103) NSR 0 (11) 10(A) , No pain Medications Time Medication Route Dose Verified Delivered Reason Note s Effectiveness by by 14:56:01 0.9% NaCl I.V. 100 Bi Alejandra used for ml/hr Kennedy Novak geological technician 14:56:07 Oxygen etCO2 2 Bi Alejandra used for Nasal l/min Kennedy Novak procedure cannula RN 14:56:12 Lidocaine 2% added 20ml Bi Bi for local to vial Kennedy Benavides MD anesthetic field 14:56:17 Heparin Flush added 2 bags Bi Bi used for Bag to Kennedy Benavides MD procedure (1000units/500ml field NS) 15:28:19 Versed I.V. 2 mg Bi Alejandra for sedation Kennedy Novak RN 15:28:26 Fentanyl I.V. 50 mcg Bi Alejandra for sedation Kennedy Novak RN 15:34:04 Versed I.V. 0.5 mg Bi Buffie for sedation Kennedy Mensah RN 15:34:35 Fentanyl I.V. 50 mcg Bi Buffie for sedation Kennedy Mensah RN 15:51:57 Heparin Bolus I.V. 10,000 Bi Buffie for veri fied units Kennedy Mensah RN anticoagulation with dr benavides Procedure Log Time Note 14:27:46 Alcides Amado RT(R) sent for patient. Start room use. 14:27:47 Time tracking: Regular hours (M-F 7:00 - 5:00) 14:27:52 Plan of Care:Hemodynamics will remain stable., Cardiac rhythm will remain stable., Comfort level will be maintained., Respiratory function will remain adequate., Patient/ family verbilizes understanding of procedure., Procedure tolerated without complication., Recovers from procedure without complications.. 14:29:09 Informed consent obtained and on chart 14:29:59 Patient Weight : 288.81 lbs 14:30:36 Patient Height : 67 inches 14:31:24 Lab Result : eGFR NONAFRICAN 66 ml/min 14:31:24 Lab Result : Hemoglobin 12.9 g/dl 14:31:24 Lab Result : BUN 13 mg/dl 14:31:24 Lab Result : Creatinine 0.9 mg/dl 14:48:23 Patient received from Pre/Post Procedure Room to [facility] 2 Alert and oriented. Tansferred to table in Supine position. 14:48:25 Correct patient and procedure confirmed by team. 14:48:25 Warm blankets applied, and dora hugger turned on for patient comfort. 14:48:26 ECG and BP/O2 sat monitors applied to patient. 14:55:51 Vital chart was started 14:56:01 0.9% NaCl 100 ml/hr I.V. was administered by Alejandra Novak RN; used for procedure; 14:56:07 Oxygen 2 l/min etCO2 Nasal cannula was administered by Alejandra Novak RN; used for procedure; 14:56:12 Lidocaine 2% 20ml vial added to field was administered by Bi Benavides MD; for local anesthetic; 14:56:17 Heparin Flush Bag (1000units/500ml NS) 2 bags added to field was administered by Bi Benavides MD; used for procedure; 14:57:15 Baseline sample Acquired. 14:57:32 Rhythm: sinus rhythm 14:57:33 Full Disclosure recording started 14:57:51 H&P Date Dictated: 03/22/2019 Within 30 days and on chart., H&P Addendum completed by physician on day of procedure. (MUST COMPLETE FOR ALL OUTPATIENTS). 14:57:52 Pre-op teaching completed and patient verbalized understanding. 14:57:52 Pre-procedure instructions explained to patient. 14:57:57 Family in patients room. 14:57:59 Patient NPO since Midnight. 14:58:01 Is the patient allergic to Iodine/contrast media? No. 14:58:06 Is patient on blood thinner?Yes 14:58:08 ACC The patient was administered the following blood thiners within the last 24 hours: ACCPlavix 14:58:12 Patient diabetic? Yes. 14:58:14 Previous problem with sedation/anesthesia? No ? 14:58:17 Snore? Yes 14:58:18 Sleep apnea? Yes 14:58:19 Opens mouth fully? Yes 14:58:19 Deviated septum? No 14:58:20 Sticks out tongue? Yes 14:58:25 Airway obstruction? Yes COPD 14:58:31 Dentures? No ? 14:58:33 Pre procedure: right dorsailis pedis pulse 1+ Palpable, but thready & weak; easily obliterated 14:58:44 UNABLE TO PALPATE RADIAL PULSE 14:58:49 PT. TAKES METFORMIN . LAST DOSE 9,16.19 14:58:50 Patient pain scale 0/10 ?. 14:58:54 IV patent on arrival in right forearm with 0.9% NaCl at KVO. 14:58:56 Lab results completed and on chart. 14:59:07 Right groin area was prepped with chlora-prep and draped in sterile fashion 14:59:08 Sharps counted by scrub and verified by R.N. 14:59:08 Alarms reviewed by R. N. 14:59:14 Use device set Femoral Dx 14:59:15 Tegaderm 4 x 4 (1626W) opened to sterile field. 14:59:16 ACIST Manifold (05679) opened to sterile field. 14:59:17 ACIST Hand Control (36370) opened to sterile field. 14:59:18 Bag Decanter (2002S) opened to sterile field. 14:59:18 ACIST Syringe (98699) opened to sterile field. 14:59:19 Medline Cath Pack ([id number]) opened to sterile field. 14:59:21 DIAGNOSTIC Multipack 5Fr catheter set (LM3254) opened to sterile field. 14:59:22 SHEATH 5FR [place] (OXX414) opened to sterile field. 14:59:23 EMERALD Guide Wire (024-529) opened to sterile field. 15:26:05 --------ALL STOP TIME OUT------ 15:26:06 Final Timeout: patient, procedure, and site verified with staff and physician. All members of the team are in agreement. 15:26:09 Right groin site verified by team. 15:26:16 Fire Safety Assessment: A--An alcohol-based skin anteseptic being used preoperatively., C--Open oxygen or nitrous oxide is being used., D--An ESU, laser, or fiber-optic light is being used. 15:26:20 Physical assessment completed. ASA score P 2 - A patient with mild systemic disease as per Bi Benavides MD. 15:26:41 2) 60-89 Mildly reduced kidney function, and other findings (as for stage 1) point to kidney disease. 15::44 Maximum allowable contrast dose (3.7 X eGFR X 0.75)183 ml. 15::48 Sedation plan: IV Moderate Sedation Medication:Versed, Fentanyl 15:28:19 Versed 2 mg I.V. was administered by Alejandra Novak RN; for sedation; ::26 Fentanyl 50 mcg I.V. was administered by Alejandra Novak RN; for sedation; 15:29:42 Procedure started. 15::48 Zero performed for pressure channel P1 15:30:04 Local anesthetic to right femoral artery with Lidocaine 2% by Bi Benavides MD.INITIAL ACCESS ONLY 15:32:06 A 5 Fr sheath was inserted into the Right Femoral vein 15:32:13 SHEATH 5FR [place] (XEU011) opened to sterile field. 15:34:04 Versed 0.5 mg I.V. was administered by Tanvir Mensah RN; for sedation; 15:34:35 Fentanyl 50 mcg I.V. was administered by Tanvir Mensah RN; for sedation; 15:35:36 NEEDLE Merit 18G 9cm Percutaneous Entry ([id number]) opened to sterile field. 15:37:59 A 5 Fr sheath was inserted into the Right Femoral artery 15:38:43 A MULTIPACK JL 4.0 5Fr catheter was advanced over the wire and used for Procedure. 15:41:18 LCA angiography performed. 15:41:20 Catheter removed. 15:41:25 A MULTIPACK 3DRC 5Fr catheter was advanced over the wire and used for Procedure. 15:43:41 RCA angiography performed. 15:43:48 Catheter exchanged over wire. 15:44:11 A MULTIPACK Pigtail 5 Fr catheter was advanced over the wire and used for Procedure. 15:45:40 LV gram done using HARKINS 15:45:43 Injector settings: Ml/sec: 10, Volume: 20, 15:46:10 LV hemodynamics recorded. 15:46:28 EF : 55 % 15:47:03 Catheter exchanged over wire. 15:47:07 SHEATH 6FR [place] (SLQ893) opened to sterile field. 15:47:31 INFLATOR Merit KennCompak (GG3090) opened to sterile field. 15:47:31 BMW 300cm Straight [place] 2 wire (2013233) opened to sterile field. 15:47:32 TUBING High Pressure Extension Tubing (Kennedy) (DV3881Q) opened to sterile field. 15:48:42 Sheath upsized to a 6 Fr Short. 15:48:53 GUIDE 6FR XB 3.5 catheter ([id number]) opened to sterile field. 15:49:45 6 Fr XB 3.5 guide catheter was inserted over the wire 15:51:57 Heparin Bolus 10,000 units I.V. was administered by Tanvir Mensah RN; for anticoagulation; verified with dr benavides 15:52:44 BMW 300 wire advanced. 15:55:18 Wire advanced across lesion. 15:57:48 Place stent Inflation Number: 1 A COBRA RX 3.5 X 15 Stent was prepped and advanced across the Prox CX . The stent was deployed at 12 URMILA for 0:00 (min:sec) . 15:58:09 Stent catheter was removed intact over wire. 16:00:07 Wire removed. 16:00:08 Guide catheter removed. 16:00:13 EXOSEAL 6Fr (EX600) opened to sterile field. 16:03:08 Sheath removed intact; hemostasis achieved with Exoseal to the Right Femoral vein. 16:03:14 Sheath removed intact; hemostasis achieved with Exoseal to the Right Femoral artery. 16:03:21 Procedure ended.(Physican Out) 16:03:41 Fluoroscopy time 07.10 minutes. 16:04:03 Fluoroscopy dose: 1614 mGy 16:04:03 Flurop Dose total: 1614 16:04:10 Dose Area Product 86292 mGy/cm. 16:04:15 Contrast amount:Isovue 300 142ml. 16:04:19 Maximum allowable dose exceeded? No. 16:04:20 Sharps counted by scrub and verified by R.N. 16:04:23 Post-op/insertion site Right Femoral artery dressed using a 4 x 4 and Tegaderm. 16:04:26 Post-procedure physical assessment completed. ASA score P 2 - A patient with mild systemic disease as per Bi Benavides MD. 16:04:30 Post procedure rhythm: sinus tachycardia 16:04:33 Estimated blood loss: 10 ml 16:05:35 Patient needs reinforcement of post procedure teaching. 16:05:35 Post procedure instruction explained to patient.Patient verbalizes understanding. 16:06:00 Procedure type changed to Cath procedure, Diagnostic procedure, LHC, LHC w/Coronaries, Sedation Charges, Moderate Sedation up to 30 minutes, PCI procedure, Coronary Stent, Coronary Stent Initial 16:06:38 Procedure and supply charges have been captured, reviewed, submitted and are correct. 16:06:42 Procedure Complication : No complications 16:10:05 See physician's report for complete and final results. 16:10:05 Vital chart was stopped 16:10:07 Report given to Pre/Post Procedure Room. 16:10:09 Patient transfered to Pre/Post Procedure Room with Bed. 16:10:11 Full Disclosure recording stopped 16:10:11 Procedure ended. 16:10:15 End room use (Document Last) Intervention Summary Intervention Notes Time ActionType Lesion and Equipment Action# Pressure Duration Attributes Used 15:57:48 Place stent Prox CX COBRA RX 1 12 00:00 3.5 X 15 Stent Device Usage Item Name Manufacture Quantity Catalog Hospital Part Current Minimal Lot# / Number Charge Number Stock Stock Serial# Code Tegbalaji 4 x 4 3M 1 1626W 239978 259877 906736 5 (1626W) ACIST Manifold Acist 1 30169 124445 289871 308398 5 (57336) Medical Systems Inc ACIST Hand Acist 1 47496 518648 716969 696856 5 Control Medical (89774) Systems Inc ACIST Syringe Acist 1 23546 965880 915276 389133 20 (34686) Medical Systems Inc Bag Decanter Microtek 1 2001S 106807 52163 351678 5 (2001S) Medical Inc. Medline Cath Medline 1 [id number] 443698 23116 175836 5 Pack ([id number]) DIAGNOSTIC Cardinal 1 YL5307 811457 01716 231644 30 Multipack 5Fr Health catheter set (YC4307) SHEATH 5FR Terumo 2 ZOM584 753711 564105 162793 5 [place] (CXG930) EMERALD Guide Cardinal 1 502-455 844809 418769 554317 5 Wire (502-455) Health NEEDLE Merit Merit 1 [id number] 824622 907989 648479 5 18G 9cm Medical Percutaneous Entry (MS53T52X) MULTIPACK JL Cardinal 1 085949 5 4.0 5Fr Health catheter MULTIPACK 3DRC Cardinal 1 914677 5 5Fr catheter Health MULTIPACK Cardinal 1 074810 5 Pigtail 5 Fr Health catheter SHEATH 6FR Terumo 1 UJT682 530522 559538 819366 40 [place] (GOU960) BMW 300cm Gregory 1 5387148 509822 189772 906917 5 Straight Vascular [place] 2 wire (0060236) INFLATOR Merit Merit 1 GD7388 058604 772340 371670 15 BasixCompak Medical (HE3215) TUBING High Merit 1 [id number] 541728 23851 111306 10 Pressure Medical Extension Tubing (Benavides) (IW3652U) GUIDE 6FR XB Cardinal 1 06592543 935672 708380 448491 2 3.5 catheter Health (94980226) COBRA RX 3.5 X Celonova 1 440-70-63879 812240 902763208 5643554 5 [id number] 15 stent Biosciences (576-14-80273) EXOSEAL 6Fr Cardinal 1 EX600 329536 698865 432096 10 (EX600) Health Signature Audit [place] Stage Time Signature Unsigned Intra-Procedure 04/10/2019 Tanvir Mensah RN 4:09:34 PM Intra-Procedure 04/10/2019 Greer Fatima 4:09:59 PM RT(R) Intra-Procedure 04/10/2019 Bi Novak RN 4:10:49 PM 04/10/2019 4:36:09 PM Intra-Procedure 04/10/2019 Alejandra Novak 4:38:01 PM RN [id number] [place] [address]
[2019-04-10] MEDS ORDERED: GABAPENTIN100 MG PO (12:21)
[2019-04-10] MEDS ORDERED: ADVAIR HFA [SP]12 GM INH (12:26)
[2019-04-10] MEDS ORDERED: ADVIL200 MG PO (12:27)
[2019-04-10 12:34] VITALS: BP 146/89; BMI 45.2
[2019-04-10 13:01] LABS: ANION GAP 12.1 mmol/L (8-16); CALCIUM 9.5 mg/dL (8.5-10.1); CARBON DIOXIDE 30.1 mmol/L (21.0-32.0); CREATININE - SERUM 0.9 mg/dL (0.6-1.3); POTASSIUM - SERUM 4.2 mmol/L (3.5-5.1)
[2019-04-10 13:10] LABS: HEMATOCRIT 40.1 % (36.0-48.0); HEMOGLOBIN 12.9 g/dL (12-16); LYMPHOCYTES 22.2 % (15-50); MCH 28.8 pg (26.0-34.0); MCHC 32.2 g/dL (31.0-37.0); MCV 89.5 fL (80.0-100.0); NEUTROPHILS 72.1 % (40-80); PLATELET COUNT 333 10x3/uL (130-400); RBC 4.48 10x6/uL (4.00-5.40); RDW 13.4 % (11.5-14.5); WBC 7.4 10x3/uL (4.8-10.8)
[2019-04-10 16:00] VITALS: BP 138/64
--- NOTE | 2019-04-10 16:59 | NUR ---
TRANSFER FROM PLASTER MODEL AND MOLD MAKER BY BED. CALL LIGHT IN REACH. WILL CONT. PLAN OF CARE.
--- NOTE | 2019-04-10 17:03 | NUR ---
RECIVED FROM ACCREDITATION MANAGER PER BED TO ROOM 2123. ADMIT ASSISSMENT PER RN
[2019-04-10 17:05] VITALS: BP 109/87; Ht 170.2 cm; Wt 130.9 kg
--- NOTE | 2019-04-10 19:21 | NUR ---
BEDSIDE REPORT RECEIVED FROM DAY SHIFT, PT CARE ASSUMED. INTRODUCED SELF AND WROTE NAME ON BOARD. PT LYING IN BED WITH EYES CLOSED, RR EVEN AND NONLABORED, NO S/S OF DISTRESS, EASILY AROUSES TO VOICE, AAOX4. DENIES ANY NEEDS AT THIS TIME. BED IN LOWEST POSITION, SR X2, CALL LIGHT WITHIN REACH. WILL CONTINUE TO MONITOR.
--- NOTE | 2019-04-10 20:30 | NUR ---
ASSISTED PT TO RESTROOM AND BACK TO BED. PT TOLERATED WELL. CLEAR YELLOW URINE NOTED IN TOILET. DENIES ANY NEEDS AT THIS TIME. BED IN LOWEST POSITION, SR X2, CALL LIGHT WITHIN REACH. AT BEDSIDE. WILL CONTINUE TO MONITOR.
[2019-04-10 20:47] VITALS: BP 126/97
[2019-04-11] VITALS: BP 139/66
[2019-04-11 04:00] VITALS: BP 112/63
--- NOTE | 2019-04-11 07:49 | NUR ---
ASSESSMENT DONE. DENIES NEEDS
[2019-04-11 08:00] VITALS: BP 134/67
--- NOTE | 2019-04-11 09:10 | NUR ---
I have reviewed this patient and I concur with the Shift Assessment completed by the Licensed Practical Nurse today this shift.
--- NOTE | 2019-04-11 10:42 | NUR ---
DC GIVEN TO PT
--- NOTE | 2019-04-11 10:56 | NUR ---
DC HOME PER PERSONAL CAR
== END 2019-04-11 10:56 | disposition home or self-care (01) ==
LOC: D.CATH 12:05 → D.M2 16:48 → D.CATH 04-11 10:56
PROVIDERS: ATTEND Internal Medicine Cardiovascular Disease
DX: I25.10 Atherosclerotic heart disease of native coronary artery without angina pectoris (principal); R06.02 Shortness of breath
CPT/HCPCS: C9600; 93458

== ENCOUNTER → 2019-06-18 11:46 | Outpatient (CLI) | payer MEDICARE, OTHER ==
[~2019-06-18] VITALS: Ht 170.2 cm; Wt 136.8 kg
--- NOTE | ~2019-06-18 | HEMODYNAMI ---
PATIENT:HERO ROBERSON MEDICAL RECORD: [id number] : 48 LOCATION:D.CAT ADMISSION DATE: 06/18/19 Generatedon:06/18/201916:02 Patient name: HERO ROBERSON Patient #: [id number] SSN: D OB: 1950 Date of study: 06/18/2019 Page: Of Hemodynamic Procedure Report Patient Data Patient Demographics Procedure consent was obtained First Name: HERO Gender: Female Last Name: DA : 1950 Middle Initial: D Age: 68 year(s) Patient #: [id number] Race: Additional ID: [id number] Contact details Address: [address] [place] [address] State: [place] City: [place] Zip code: [address] Past Medical History Allergies: No known allergies Admission Admission Data Admission Date: 06/18/2019 Admission Time: 11:46 Arrival Date: 06/18/2019 Arrival Time: 0:00 Height (in.): 66.93 BSA: 2.41 (m2) Height (cm.): 170 BMI: 47.4 (kg/m2) Weight (lbs.): 302.03 Weight (kg.): 137 Lab Results Lab Result Date: 06/18/2019 Lab Result Time: 0:00 Biochemistry Name Units Result Min Max BUN mg/dl 14 --(--*-)-- 7 18 Creatinine mg/dl 1 --(--*-)-- 0.6 1.3 eGFR ml/min 58 *-(----)-- 90 120 NONAFRICAN CBC Name Units Result Min Max Hematocrit % 39.1 -*(----)-- 42 54 Hemoglobin g/dl 12.5 *-(----)-- 13.5 17.5 Procedure Procedure Types Cath Procedure Diagnostic Procedure [facility] w/Coronaries FFR/IVUS Intra-Coronary IVUS Initial Sedation Charges Moderate Sedation up to 30 minutes PCI Procedure Coronary Stent Coronary Stent Initial Procedure Description Procedure Date Procedure Date: 06/18/2019 Procedure Start Time: 15:25 Procedure End Time: 16:00 Procedure Staff Name Function Bi Benavides MD Performing Physician Greer Fatima RT Monitor Nelda Rhodes RT Scrub Haider May RN Nurse Procedure Data Cath Procedure Fluoroscopy Diagnostic fluoroscopy Total fluoroscopy Time: 5.7 time: 5.7 min min Diagnostic fluoroscopy Total fluoroscopy dose: 830 dose: 830 mGy mGy Contrast Material Contrast Material Type Amount (ml) Isovue 300 105 Entry Location Entry Primary Successful Side Size Upsize Upsize Entry Closure Succes sful Closure Location (Fr) 1 (Fr) 2 (Fr) Remarks Device Remarks Femoral Right 5 Fr 6 Fr Exoseal artery Short Estimated blood loss: 10 ml Diagnostic catheters Device Type Used For End Catheter Placement MULTIPACK JL 4.0 5Fr Procedure catheter MULTIPACK 3DRC 5Fr Procedure catheter MULTIPACK Pigtail 5 Fr Procedure catheter Procedure Complications No complications Procedure Medications Medication Administration Route Dosage 0.9% NaCl I.V. 100 ml/hr Oxygen etCO2 Nasal cannula 2 l/min Heparin Flush Bag added to field 2 bags (1000units/500ml NS) Lidocaine 2% added to field 20 Versed I.V. 1 mg Fentanyl I.V. 50 mcg Heparin Bolus I.V. 22042 units Hemodynamics Rest BSA: 2.41 (m2) HGB: 12.5 (g/dl) O2 Consumption: Estimated: 228.79 (ml/min) O2 Co nsumption indexed: Estimated:94.93 (ml/min/m) Heart Rate: 77 (bpm) Pressure Samples Time Site Value (mmHg) Purpose Heart Use Rate(bpm) 15:36 LV 45/6,-1 Snapshot 61 15:37 AO 128/72(96) Pullback 67 15:37 LV 123/17,27 Pullback 67 Gradients Valve Time Site 1 Site 2 Mean SEP/DFP Peak To Heart Use (mmHg) (sec/min) Peak Rate (mmHg) (bpm) Aortic 15:37 LV AO 0 6 0 67 123/17,27 128/72(96) Calculations Valve P-P Mean Valve Index Valve Source Name Gradient Area Flow (cm2) Aortic 0 0 0 0 Snapshots Pre Cath Intra NCS Post Cath Vital Signs Time Heart Resp SPO2 etCO2 NIBP Rhythm Pain Sedation Rate (ipm) (%) (mmHg) (mmHg) Status Level (bpm) 15:12:43 80 20 100 36.9 126/63(88) NSR 0 (11) 10(A) , No pain 15:17:18 82 14 97 25.8 123/44(86) NSR 0 (11) 10(A) , No pain 15:21:56 80 14 97 14.7 120/31(77) NSR 0 (11) 10(A) , No pain 15:26:20 74 14 96 35.4 119/53(82) NSR 0 (11) 10(A) , No pain 15:30:42 76 13 96 37.7 111/57(88) NSR 0 (11) 10(A) , No pain 15:35:04 82 13 96 36.9 126/65(98) NSR 0 (11) 9(A) , No pain 15:39:37 80 14 96 32.5 115/56(90) NSR 0 (11) 9(A) , No pain 15:44:01 84 14 95 36.2 122/63(81) NSR 0 (11) 9(A) , No pain 15:48:27 85 13 96 31 123/58(80) NSR 0 (11) 9(A) , No pain 15:52:58 85 13 96 32.5 109/57(81) NSR 0 (11) 9(A) , No pain 15:57:16 86 15 96 31 128/75(96) NSR 0 (11) 10(A) , No pain Medications Time Medication Route Dose Verified Delivered Reason Note s Effectiveness by by 15:14:22 0.9% NaCl I.V. 100 Haider Haider Per physician ml/hr Lalo May RN RN 15:14:31 Oxygen etCO2 2 Haider Haider for low 02 sats Nasal l/min Lalo May cannula RN RN 15:14:46 Heparin Flush added 2 bags Haider Haider used for Bag to Lalo May procedure (1000units/500ml field BARRAZA RN NS) 15:14:59 Lidocaine 2% added 20ml Haider Haider for local to vial Lorigan Lalo anesthetic field BARRAZA RN 15:23:07 Versed I.V. 1 mg Haider Haider for sedation Lalo May RN RN 15:23:14 Fentanyl I.V. 50 mcg Haider Haider for sedation Lalo May RN RN 15:42:53 Heparin Bolus I.V. 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 Start room use. 14:59:01 Procedure Status Elective Heart Cath (OP). 14:59:02 Time tracking: Regular hours (M-F 7:00 - 5:00) 14:59:07 Plan of Care:Hemodynamics will remain stable., Cardiac rhythm will remain stable., Comfort level will be maintained., Respiratory function will remain adequate., Patient/ family verbilizes understanding of procedure., Procedure tolerated without complication., Recovers from procedure without complications.. 14:59:13 H&P Date Dictated: 06/07/2019 Within 30 days and on chart., H&P Addendum completed by physician on day of procedure. (MUST COMPLETE FOR ALL OUTPATIENTS). 14:59:18 Patient allergic to No known allergies 15:00:44 Patient Weight : 302.03 lbs 15:00:48 Patient Height : 66.93 inches 15:00:52 Arrival Date: 06/18/2019 12:00:00 AM 15:03:21 Risk of Mortality: .1 15:03:23 Risk of blood transfusion: .1 15:03:27 Risk of ESTEFANI: .7 15:03:38 Patient received from Pre/Post Procedure Room to CCL 1 Alert and oriented. Tansferred to table in Supine position. 15:03:39 Warm blankets applied, and dora hugger turned on for patient comfort. 15:03:39 Correct patient and procedure confirmed by team. 15:03:40 ECG and BP/O2 sat monitors applied to patient. 15:04:15 Lab Result : BUN 14 mg/dl 15:04:15 Lab Result : Creatinine 1 mg/dl 15:04:15 Lab Result : eGFR NONAFRICAN 58 ml/min 15:04:15 Lab Result : Hemoglobin 12.5 g/dl 15:04:15 Lab Result : Hematocrit 39.1 % 15:11:14 Vital chart was started 15:11:15 Baseline sample Acquired. 15:11:19 Rhythm: sinus rhythm 15:11:20 Full Disclosure recording started 15:11:21 Pre-procedure instructions explained to patient. 15:11:23 Pre-op teaching completed and patient verbalized understanding. 15:11:24 Family in patients room. 15:11:25 Patient NPO since Midnight. 15:11:27 Is the patient allergic to Iodine/contrast media? No. 15:11:28 Is patient on blood thinner?Yes 15:11:30 ACC The patient was administered the following blood thiners within the last 24 hours: ACCPlavix 15:11:32 Patient diabetic? Yes. 15:11:33 If diabetic: On Metformin? Yes 15:11:35 If on Metformin: Last Dose? 06/17/2019 15:11:39 Patient not . Patient is over age 55. 15:11:41 Previous problem with sedation/anesthesia? No ? 15:11:42 Snore? Yes 15:11:43 Sleep apnea? Yes 15:11:45 Deviated septum? No 15:11:45 Opens mouth fully? Yes 15:11:47 Sticks out tongue? Yes 15:11:51 Airway obstruction? Yes COPD 15:11:54 Dentures? No ? 15:11:56 Pre procedure: right dorsailis pedis pulse 1+ Palpable, but thready & weak; easily obliterated 15:11:59 Patient pain scale 0/10 ?. 15:12:03 IV patent on arrival in right antecubital with 0.9% NaCl at [facility]. 15:12:06 Lab results completed and on chart. 15:12:26 Stress Test: no; N/A ? 15:12:29 Right groin area was prepped with chlora-prep and draped in sterile fashion 15:12:30 Alarms reviewed by R. N. 15:12:30 Sharps counted by scrub and verified by R.N. 15:12:34 Use device set Femoral Dx 15:12:35 ACIST Syringe (39164) opened to sterile field. 15:12:36 Bag Decanter (2001S) opened to sterile field. 15:12:37 ACIST Hand Control (32824) opened to sterile field. 15:12:37 ACIST Manifold (73536) opened to sterile field. 15:12:38 Tegaderm 4 x 4 (1626W) opened to sterile field. 15:12:39 Medline Cath Pack ([id number]) opened to sterile field. 15:12:40 DIAGNOSTIC Multipack 5Fr catheter set (WT8466) opened to sterile field. 15:12:40 SHEATH 5FR [place] (GOO884) opened to sterile field. 15:12:41 EMERALD Guide Wire (141-522) opened to sterile field. 15:14:22 0.9% NaCl 100 ml/hr I.V. was administered by Haider May RN; Per physician; Verbal order read back and verified. 15:14:31 Oxygen 2 l/min etCO2 Nasal cannula was administered by Haider May RN; for low 02 sats; Verbal order read back and verified. 15:14:46 Heparin Flush Bag (1000units/500ml NS) 2 bags added to field was administered by Haider May RN; used for procedure; Verbal order read back and verified. 15:14:59 Lidocaine 2% 20ml vial added to field was administered by Haider May RN; for local anesthetic; Verbal order read back and verified. 15:20:04 --------ALL STOP TIME OUT------ 15:20:05 Final Timeout: patient, procedure, and site verified with staff and physician. All members of the team are in agreement. 15:20:07 Right groin site verified by team. 15:20:10 Fire Safety Assessment: A--An alcohol-based skin anteseptic being used preoperatively., C--Open oxygen or nitrous oxide is being used., D--An ESU, laser, or fiber-optic light is being used. 15:20:15 Physical assessment completed. ASA score P 3 - A patient with severe systemic disease as per Bi Benavides MD. 15:20:21 3a) 45-59 Moderately reduced kidney function. 15:20:24 Maximum allowable contrast dose (3.7 X eGFR X 0.75)161 ml. 15:20:27 Sedation plan: IV Moderate Sedation Medication:Versed, Fentanyl 15:23:07 Versed 1 mg I.V. was administered by Haider May RN; for sedation; Verbal order read back and verified. 15:23:14 Fentanyl 50 mcg I.V. was administered by Haider May RN; for sedation; Verbal order read back and verified. 15:25:03 Procedure started. 15:25:46 Local anesthetic to right femoral artery with Lidocaine 2% by Bi Benavides MD.INITIAL ACCESS ONLY 15:29:33 A 5 Fr sheath was inserted into the Right Femoral artery 15:30:58 A MULTIPACK JL 4.0 5Fr catheter was advanced over the wire and used for Procedure. 15:31:42 LCA angiography performed. 15:32:26 Catheter exchanged over wire. 15:33:26 A MULTIPACK 3DRC 5Fr catheter was advanced over the wire and used for Procedure. 15:34:10 RCA angiography performed. 15:34:13 Catheter exchanged over wire. 15:35:36 A MULTIPACK Pigtail 5 Fr catheter was advanced over the wire and used for Procedure. 15:35:39 LV gram done using HARKINS 15:35:42 Injector settings: Ml/sec: 10, Volume: 20, 15:36:40 LV hemodynamics recorded. 15:36:45 EF : 55 % 15:37:17 Catheter exchanged over wire. 15:38:13 SHEATH 6FR [place] (JEL706) opened to sterile field. 15:38:13 BMW 300cm Straight [place] 2 wire (8803904) opened to sterile field. 15:38:14 INFLATOR Merit BasixCompak (EU6201) opened to sterile field. 15:38:14 TUBING High Pressure Extension Tubing (Kennedy) (DQ9365N) opened to sterile field. 15:38:49 Sheath upsized to a 6 Fr Short. 15:39:01 GUIDE 6FR XBLAD 3.5 catheter (83868123) opened to sterile field. 15:39:26 [place] Eagley[place] IVUS Catheter (25273M) opened to sterile field. 15:39:39 Proceeding to intervention. 15:39:45 6 Fr XBLAD 3.5 guide catheter was inserted over the wire 15:42:38 BMW 300 wire advanced. 15:42:39 Wire advanced across lesion. 15:42:53 Heparin Bolus 10,000 units I.V. was administered by Haider May RN; for anticoagulation; Verbal order read back and verified. 15:43:36 IVUS catheter advanced over wire. 15:44:51 UNABLE TO CROSS LESION IN LAD WITH IVUS. 15:46:42 Pre PCI Site: [place] mLAD has 90 % stenosis with Plaque buildup 15:48:23 Inflate balloon Inflation number: 1 A EUPHORA 3.0 x 20 Balloon ([id number]) was prepped and advanced across the Mid LAD , then inflated to 12 URMILA for 0:00 (min:sec) . 15:50:04 Balloon removed over the wire. 15:52:23 Place stent Inflation Number: 2 A COBRA RX 3.0 X 24 Stent was prepped and advanced across the Mid LAD . The stent was deployed at 13 URMILA for 0:00 (min:sec) . 15:52:34 Stent catheter was removed intact over wire. 15:54:00 Wire removed. 15:54:01 Guide catheter removed. 15:54:06 EXOSEAL 6Fr (EX600) opened to sterile field. 15:55:45 Sheath removed intact; hemostasis achieved with Exoseal to the Right Femoral artery. 15:55:48 Procedure ended.(Physican Out) 15:56:29 Fluoroscopy time 05.70 minutes. 15:56:35 Flurop Dose total: 830 15:56:35 Fluoroscopy dose: 830 mGy 15:56:42 Dose Area Product 23104 mGy/cm. 15:57:10 Contrast amount:Isovue 300 105ml. 15:57:14 Maximum allowable dose exceeded? No. 15:57:18 Sharps counted by scrub and verified by R.N. 15:57:21 Post-op/insertion site Right Femoral artery dressed using a 4 x 4 and Tegaderm. 15:57:34 Post-procedure physical assessment completed. ASA score P 2 - A patient with mild systemic disease as per Bi Benavides MD. 15:57:55 Post procedure rhythm: sinus rhythm 15:57:58 Estimated blood loss: 10 ml 15:58:00 Post procedure instruction explained to patient.Patient verbalizes understanding. 15:58:01 Patient needs reinforcement of post procedure teaching. 15:59:05 Procedure type changed to Cath procedure, Diagnostic procedure, LHC, LHC w/Coronaries, FFR/IVUS, Intra-Coronary IVUS Initial, Sedation Charges, Moderate Sedation up to 30 minutes, PCI procedure, Coronary Stent, Coronary Stent Initial 16:00:11 ACT drawn and resulted at 220 seconds. (normal therapeutic range 180-240 seconds). 16:00:17 Procedure and supply charges have been captured, reviewed, submitted and are correct. 16:00:20 Procedure Complication : No complications 16:00:22 Vital chart was stopped 16:00:26 [facility] Findings: MVD- PCI performed (see procedure note) 16:00:28 Operative report dictated upon procedure completion. 16:00:30 See physician's report for complete and final results. 16:00:36 Report given to Pre/Post Procedure Room. 16:00:38 Patient transfered to Pre/Post Procedure Room with Bed. 16:00:43 Procedure ended. 16:00:43 Full Disclosure recording stopped 16:00:52 ACC-PCI Only Patient was given prescriptions, or instructed by Bi Benavides MD to start/continue the following medications upon discharge: Plavix 16:00:54 End room use (Document Last) 16:01:57 End room use (Document Last) Intervention Summary Intervention Notes Time ActionType Lesion and Equipment Action# Pressure Duration Attributes Used 15:48:23 Inflate Mid LAD EUPHORA 1 12 00:00 balloon 3.0 x 20 Balloon ([id number]) 15:52:23 Place stent Mid LAD COBRA RX 2 13 00:00 3.0 X 24 Stent Device Usage Item Name Manufacture Quantity Catalog Hospital Part Current Minimal Lot# / Number Charge Number Stock Stock Serial# Code ACIST Syringe Acist 1 20005 566158 528897 973672 20 (35072) Medical Systems Inc Bag Decanter Microtek 1 2001S 964233 09256 429474 5 (2001S) Medical Inc. ACIST Hand Acist 1 20744 689697 894569 115844 5 Control Medical (78603) Systems Inc ACIST Manifold Acist 1 65240 563421 431777 876760 5 (75260) Medical Systems Inc Tegaderm 4 x 4 3M 1 1626W 304756 240401 396189 5 (1626W) Medline Cath Medline 1 [id number] 548446 56008 839373 5 Pack ([id number]) DIAGNOSTIC Cardinal 1 JU7341 887563 20004 041406 30 Multipack 5Fr Health catheter set (RV1194) SHEATH 5FR Terumo 1 AHF826 212401 641369 233281 5 [place] (BID561) EMERALD Guide Cardinal 1 502-455 513705 840277 425527 5 Wire (502-146) Health MULTIPACK JL Cardinal 1 213314 5 4.0 5Fr Health catheter MULTIPACK 3DRC Cardinal 1 917109 5 5Fr catheter Health MULTIPACK Cardinal 1 489709 5 Pigtail 5 Fr Health catheter SHEATH 6FR Terumo 1 KVI543 383985 613600 138092 40 [place] (NSX188) BMW 300cm Gregory 1 8487516 444933 607450 515241 5 Straight Vascular [place] 2 wire (3935918) INFLATOR Merit Merit 1 AT1643 397224 601072 964447 15 BasixCompak Medical (MA0252) TUBING High Merit 1 QF3510Q 757125 74780 279750 10 Pressure Medical Extension Tubing (Benavides) (CL0570J) GUIDE 6FR Cardinal 1 [id number] 037242 100123 600732 10 XBLAD 3.5 Health catheter (24783311) [place] 1 06214Q 471346 491029 766971 8 [place] Eagley[place] IVUS Catheter (09407D) EUPHORA 3.0 x Medtronic 1 [id number] 551314 253487 207335 5 [id number] 20 Balloon ([id number]) COBRA RX 3.0 X Celonova 1 994-06-97479 699601 357104898 935549 1 [id number] 24 stent Biosciences (383-97-19794) EXOSEAL 6Fr Cardinal 1 EX600 945965 835713 634145 10 (EX600) Health Signature Audit [place] Stage Time Signature Unsigned Intra-Procedure 06/18/2019 Greer Fatima 4:01:57 PM RT(R) Intra-Procedure 06/18/2019 Haider 4:02:34 PM Lalo BARRAZA Intra-Procedure 06/18/2019 Bi Benavides MD 4:02:54 PM [address] [place] [address]
[~2019-06-18 11:46] MED LIST changes: +ADVAIR HFA [SP]12 GM INH; +ADVIL200 MG PO; +IMODIUM2 MG PO; +METOLAZONE2.5 MG PO; +PULMICORT0.5 MG/21 INH
[2019-06-18 12:46] VITALS: BP 152/71; Ht 170.2 cm; Wt 136.8 kg
[2019-06-18 12:54] LABS: BASOPHILS 0.2 % (0-2); EOSINOPHILS 1.9 % (0-7); HEMATOCRIT 39.1 % (36.0-48.0); HEMOGLOBIN 12.5 g/dL (12-16); IMMATURE GRANULOCYTES 0.2 % (0-5); LYMPHOCYTES 16.8 % (15-50); MCH 29.6 pg (26.0-34.0); MCV 92.4 fL (80.0-100.0); NEUTROPHILS 74.9 % (40-80); PLATELET COUNT 318 10x3/uL (130-400); RBC 4.23 10x6/uL (4.00-5.40); RDW 13.8 % (11.5-14.5); WBC 8.6 10x3/uL (4.8-10.8)
[2019-06-18 13:07] LABS: ANION GAP 11.2 mmol/L (8-16); CALCIUM 9.4 mg/dL (8.5-10.1); CARBON DIOXIDE 31.4 mmol/L (21.0-32.0); LDL-HDL RATIO 1.7 ratio (1.5-3.5); POTASSIUM - SERUM 3.6 mmol/L (3.5-5.1)
--- NOTE | 2019-06-18 16:15 | NUR ---
REC TO ROOM, MONITORING INITIATED, R GROIN SOFT NO BLEEDING/HEMATOMA, VSS HR 82 NSR, NIBP 104/59, RESP 16, EVEN AND UNLABORED, SAT 95% ON 2LNC. AT BEDSIDE.
--- NOTE | 2019-06-18 16:45 | NUR ---
R GROIN REMAINS CDI, SOFT, NO BLEEDING OR HEMATOMA. FOOT WARM AND PINK. NO COMPLAINTS. VSS, NSR HR 78, NIBP 134/65. SAT 99% ON 2LNC, WEANING TO 1LNC.
--- NOTE | 2019-06-18 17:29 | NUR ---
R GROIN SOFT, NO BLEEDING/HEMATOMA. VSS, NSR 81, NIBP 125/63, SAT 98% ON 1LNC. DENIES PAIN OR NEEDS. AT BEDSIDE.
--- NOTE | 2019-06-18 18:01 | NUR ---
R GROIN SOFT, NO BLEEDING OR HEMATOMA NOTED. R FOOT WARM AND PINK. VSS, HR 83 NSR, NIBP 127/63. O2 SAT 97% ON 1LNC. DENIES PAIN, NEEDS.
--- NOTE | 2019-06-18 18:30 | NUR ---
PT C/O NEEDING TO VOID. ASSISTED ONTO BEDPAN. ALSO C/O LBP WHICH IS SOMETHING SHE SUFFERS CHRONICALLY. EXPL WILL ASSIST HER TO TILT W A PILLOW FOR RELIEF WHEN SHE FINISHES ON BEDPAN. VERBALIZES UNDERSTANDING.
--- NOTE | 2019-06-18 18:52 | NUR ---
RAISED HOB, R GROIN SOFT AND NONTENDER, NO BLEEDING OR HEMATOMA NOTED.
--- NOTE | 2019-06-18 19:20 | NUR ---
R GROIN SOFT, NO BLEEDING OR HEMATOMA NOTED. IV DC, TIP INTACT. MONITORING DISCONTINUED. ASSISTED TO SITTING, NO DIZZINESS REPORTED. NONSKID SOCKS ON, ASSISTED TO AMBULATE TO BATHROOM TO VOID WITHOUT DIFFICULTY. BACK TO ROOM, R GROIN DRESSING CHANGED DUE TO NONADHERENCE OF ORIGINAL TEGADERM. 4X4 AND TEGADERM PLACED WITH GOOD ADHERENCE.
--- NOTE | 2019-06-18 19:45 | NUR ---
D/C TEACHING DONE W PT AND , DC PPWK GIVEN. R GROIN CDI, NO BLEEDING OR HEMATOMA. PT DRESSING.
--- NOTE | 2019-06-18 19:56 | NUR ---
PT DC HOME VIA PRIVATE CAR W AND ALL BELONGINGS.
== END | disposition home or self-care (01) ==
LOC: D.CATH 11:46
PROVIDERS: ATTEND Internal Medicine Cardiovascular Disease
DX: I25.110 Atherosclerotic heart disease of native coronary artery with unstable angina pectoris (principal)

== ENCOUNTER 2019-12-27 08:42 | Outpatient (CLI) | payer MEDICARE, OTHER ==
[~2019-12-27] VITALS: Ht 170.2 cm; Wt 151.8 kg
--- NOTE | ~2019-12-27 | HEMODYNAMI ---
PATIENT:HERO ROBERSON MEDICAL RECORD: [id number] : 48 LOCATION:[facility] ADMISSION DATE: 12/27/19 Generatedon:12/27/201910:35 Patient name: HERO ROBERSON Patient #: [id number] SSN: [id number] : 1950 Date of study: 12/27/2019 Page: Of Hemodynamic Procedure Report Patient Data Patient Demographics Procedure consent was obtained First Name: HERO Gender: Female Last Name: DA : 1950 [facility] Initial: D Age: 69 year(s) Patient #: [id number] Race: SSN: [id number] Additional ID: [id number] Contact details Address: [address] [place] [address] State: [place] City: [place] Zip code: [address] Past Medical History Allergies: No known allergies Admission Admission Data Admission Date: 12/27/2019 Admission Time: 8:42 Arrival Date: 12/27/2019 Arrival Time: 0:00 Admit Source: Other Insurance Payor: Medicare [facility] #: [id number] Height (in.): 67 BSA: 2.4 (m2) Height (cm.): 170.18 BMI: 46.99 (kg/m2) Weight (lbs.): 300 Weight (kg.): 136.08 Lab Results Lab Result Date: 12/27/2019 Lab Result Time: 0:00 Biochemistry Name Units Result Min Max BUN mg/dl 17 --(---*)-- 7 18 Creatinine mg/dl 0.9 --(-*--)-- 0.6 1.3 eGFR ml/min 66 *-(----)-- 90 120 NONAFRICAN CBC Name Units Result Min Max Hematocrit % 40.6 -*(----)-- 42 54 Hemoglobin g/dl 12.4 *-(----)-- 13.5 17.5 Procedure Procedure Types Cath Procedure Diagnostic Procedure C LHC w/Coronaries Sedation Charges Moderate Sedation up to 30 minutes PCI Procedure PTCA PTCA Initial Hemochron ACT Test Procedure Description Procedure Date Procedure Date: 12/27/2019 Procedure Start Time: 10:05 Procedure End Time: 10:31 Procedure Staff Name Function Bi Benavides MD Performing Physician Tanvir Mensah RN Nurse Camelia Mcgraw RT Scrub Gay Saucedo RT Monitor Procedure Data Cath Procedure Fluoroscopy Diagnostic fluoroscopy Total fluoroscopy Time: 6.8 time: 6.8 min min Diagnostic fluoroscopy Total fluoroscopy dose: dose: 1285 mGy 1285 mGy Contrast Material Contrast Material Type Amount (ml) Isovue 370 81 Entry Location Entry Primary Successful Side Size Upsize Upsize Entry Closure Succes sful Closure Location (Fr) 1 (Fr) 2 (Fr) Remarks Device Remarks Femoral Right 5 Fr 6 Fr artery Short Estimated blood loss: 10 ml Diagnostic catheters Device Type Used For End Catheter Placement MULTIPACK JL 4.0 5Fr Procedure catheter MULTIPACK 3DRC 5Fr Procedure catheter MULTIPACK Pigtail 5 Fr Procedure catheter Procedure Complications No complications Procedure Medications Medication Administration Route Dosage Oxygen etCO2 Nasal cannula 2 l/min Lidocaine 2% added to field 20 Heparin Flush Bag added to field 2 bags (1000units/500ml NS) 0.9% NaCl I.V. 100 ml/hr Versed I.V. 1 mg Fentanyl I.V. 50 mcg Versed I.V. 1 mg Fentanyl I.V. 50 mcg Heparin Bolus I.V. 85228 units Plavix P.O. 75 mg Hemodynamics Rest BSA: 2.4 (m2) HGB: 12.4 (g/dl) O2 Consumption: Estimated: 238.13 (ml/min) O2 Con sumption indexed: Estimated:99.22 (ml/min/m) Heart Rate: 89 (bpm) Pressure Samples Time Site Value (mmHg) Purpose Heart Use Rate(bpm) 10:15 LV 132/17,31 Snapshot 93 10:16 AO 144/77(107) Pullback 92 10:16 LV 154/-1,31 Pullback 92 Gradients Valve Time Site 1 Site 2 Mean SEP/DFP Peak To Heart Use (mmHg) (sec/min) Peak Rate (mmHg) (bpm) Aortic 10:16 LV AO 12 23 10 92 154/-1,31 144/77(107) Calculations Valve P-P Mean Valve Index Valve Source Name Gradient Area Flow (cm2) Aortic 10 12 10 12 Snapshots Pre Cath Intra NCS Post Cath Vital Signs Time Heart Resp SPO2 etCO2 NIBP (mmHg) Rhythm Pain Sedation Rate (ipm) (%) (mmHg) Status Level (bpm) 9:54:24 86 34 97 44.9 154/81(118) NSR 0 (11) 10(A) , No pain 9:58:54 87 12 95 7.4 157/80(113) NSR 0 (11) 10(A) , No pain 10:03:20 89 15 96 15.7 153/77(124) NSR 0 (11) 10(A) , No pain 10:08:52 89 11 96 17.9 135/78(109) NSR 0 (11) 9(A) , No pain 10:13:15 92 12 96 21.7 150/85(114) NSR 0 (11) 9(A) , No pain 10:17:45 91 11 97 27.7 147/83(123) NSR 0 (11) 9(A) , No pain 10:22:11 92 12 97 0 148/85(110) NSR 0 (11) 9(A) , No pain 10:27:41 89 12 97 38.9 155/80(106) NSR 0 (11) 10(A) , No pain 10:32:11 91 14 98 12.7 161/81(126) NSR 0 (11) 10(A) , No pain Medications Time Medication Route Dose Verified Delivered Reason Note s Effectiveness by by 9:53:18 Oxygen etCO2 2 Bi Buffie used for Nasal l/min Kennedy Mensah RN procedure cannula 9:53:30 Lidocaine 2% added 20ml Bi Bi for local to vial Kennedy Benavides MD anesthetic field 9:53:36 Heparin Flush added 2 bags Bi Bi used for Bag to Kennedy Benavides MD procedure (1000units/500ml field NS) 9:53:54 0.9% NaCl I.V. 100 Bi Buffie Per physician ml/hr Kennedy Mensah RN 10:01:48 Versed I.V. 1 mg Bi Buffie for sedation Kennedy Mensah RN 10:01:54 Fentanyl I.V. 50 mcg Bi Buffie for sedation Kennedy Mensah RN 10:06:49 Versed I.V. 1 mg Bi Buffie for sedation Kennedy Mensah RN 10:06:54 Fentanyl I.V. 50 mcg Bi Raheelie for sedation Kennedy Mensah RN 10:20:46 Heparin Bolus I.V. 10,000 Bi Raheelie for veri fied units Kennedy Mensah RN anticoagulation with dr benavides 10:29:52 Plavix P.O. 75 mg Bi Tanvir for Kennedy Mensah RN antiplatelet therapy Procedure Log Time Note 9:15:22 Informed consent obtained and on chart 9:16:44 Arrival Date: 12/27/2019 12:00:00 AM 9:16:45 Admit Source: Other 9:16:48 Insurance Payor : Medicare 9:18:04 Diagnostic Cath Status : Elective 9:20:10 Patient allergic to No known allergies 9:20:17 Procedure Status Elective Heart Cath (OP). 9:20:19 Time tracking: Regular hours (M-F 7:00 - 5:00) 9:20:24 Plan of Care:Hemodynamics will remain stable., Cardiac rhythm will remain stable., Comfort level will be maintained., Respiratory function will remain adequate., Patient/ family verbilizes understanding of procedure., Procedure tolerated without complication., Recovers from procedure without complications.. 9:20:32 H&P Date Dictated: 12/27/2019 Within 30 days and on chart.. 9:20:41 Pre-procedure instructions explained to patient. 9:20:41 Pre-op teaching completed and patient verbalized understanding. 9:21:43 Patient Height : 67 inches 9:21:55 Patient Weight : 300 lbs 9:24:23 Alarms reviewed by R. N. 9:24:24 Sharps counted by scrub and verified by R.N. 9:24:31 Patient pain scale 0/10 ?. 9:24:38 Stress Test: no; N/A ? 9:35:04 Family in patients room. 9:35:06 Patient NPO since Midnight. 9:35:19 Lab results completed and on chart. 9:36:40 Procedure delayed due to: PT NOT READY 9:43:12 Tanvir Mensah RN sent for patient. Start room use. 9:46:24 Patient received from Pre/Post Procedure Room to CCL 2 Alert and oriented. Tansferred to table in Supine position. 9:46:25 Warm blankets applied, and dora hugger turned on for patient comfort. 9:46:26 Correct patient and procedure confirmed by team. 9:46:26 ECG and BP/O2 sat monitors applied to patient. 9:47:19 Is the patient allergic to Iodine/contrast media? No. 9:47:21 Was the patient premedicated? No 9:47:28 Patient not . Patient is over age 55. 9:51:45 Patient diabetic? Yes. 9:51:56 If diabetic: On Metformin? Yes 9:52:02 If on Metformin: Last Dose? 12/24/2019 9:52:28 SKIN TEAR NOTICED PRIOR TO CLEANING. 9:52:46 Is patient on blood thinner?Yes 9:52:49 ACC The patient was administered the following blood thiners within the last 24 hours: ACCPlavix 9:52:51 ----Pre-sedation anethsthesia assessment.---- 9:52:53 Previous problem with sedation/anesthesia? No ? 9:52:54 Snore? Yes 9:52:57 Sleep apnea? Yes 9:52:58 Deviated septum? No 9:53:00 Opens mouth fully? Yes 9:53:00 Sticks out tongue? Yes 9:53:04 Airway obstruction? Yes COPD 9:53:05 Vital chart was started 9:53:15 Dentures? No ? 9:53:18 Oxygen 2 l/min etCO2 Nasal cannula was administered by Tanvir Mensah RN; used for procedure; Verbal order read back and verified. 9:53:30 Lidocaine 2% 20ml vial added to field was administered by Bi Benavides MD; for local anesthetic; Verbal order read back and verified. 9:53:36 Heparin Flush Bag (1000units/500ml NS) 2 bags added to field was administered by Bi Benavides MD; used for procedure; Verbal order read back and verified. 9:53:37 Pre procedure: right dorsailis pedis pulse Doppler 9:53:42 Modified Hunter's test Ulnar > 7 seconds. 9:53:48 IV patent on arrival in left antecubital with 0.9% NaCl at KVO. 9:53:54 0.9% NaCl 100 ml/hr I.V. was administered by Tanvir Mensah RN; Per physician; Verbal order read back and verified. 9:55:22 Right groin area was prepped with chlora-prep and draped in sterile fashion 9:59:15 Full Disclosure recording started 9:59:16 Baseline sample Acquired. 9:59:19 Rhythm: sinus rhythm 9:59:27 Risk of Mortality: 0.1 9:59:30 Risk of blood transfusion: 0.4 9:59:30 Use device set Radial Dx or PCI 9:59:31 ACIST Syringe (68034) opened to sterile field. 9:59:32 Risk of ESTEFANI: 1.4 9:59:32 Medline Cath Pack ([id number]) opened to sterile field. 9:59:32 Bag Decanter () opened to sterile field. 9:59:33 ACIST Hand Control (82525) opened to sterile field. 9:59:35 ACIST Manifold (90492) opened to sterile field. 9:59:41 2) 60-89 Mildly reduced kidney function, and other findings (as for stage 1) point to kidney disease. 9:59:42 EMERALD Guide Wire (909-738) opened to sterile field. 9:59:44 Maximum allowable contrast dose (3.7 X eGFR X 0.75)183 ml. 9:59:49 --------ALL STOP TIME OUT------ 9:59:49 Final Timeout: patient, procedure, and site verified with staff and physician. All members of the team are in agreement. 9:59:50 Right groin site verified by team. 9:59:54 Fire Safety Assessment: A--An alcohol-based skin anteseptic being used preoperatively., C--Open oxygen or nitrous oxide is being used., D--An ESU, laser, or fiber-optic light is being used. 9:59:58 Physical assessment completed. ASA score P 2 - A patient with mild systemic disease as per Bi Benavides MD. 10:00:04 Sedation plan: IV Moderate Sedation Medication:Versed, Fentanyl 10:01:48 Versed 1 mg I.V. was administered by Tanvir Mensah RN; for sedation; Verbal order read back and verified. 10:01:49 Procedure started. 10:01:54 Fentanyl 50 mcg I.V. was administered by Tanvir Mensah RN; for sedation; Verbal order read back and verified. 10:02:48 Lab Result : Hemoglobin 12.4 g/dl 10:02:48 Lab Result : Hematocrit 40.6 % 10:04:59 Use device set Femoral Dx 10:05:04 DIAGNOSTIC Multipack 5Fr catheter set (IV4124) opened to sterile field. 10:05:30 Local anesthetic to right femoral artery with Lidocaine 2% by Bi Benavides MD.INITIAL ACCESS ONLY 10:06:35 NEEDLE Merit 18G 9cm Percutaneous Entry ([id number]) opened to sterile field. 10:06:49 Versed 1 mg I.V. was administered by Tanvir Mensah RN; for sedation; Verbal order read back and verified. 10:06:54 Fentanyl 50 mcg I.V. was administered by Tanvir Mensah RN; for sedation; Verbal order read back and verified. 10:07:25 SHEATH 5FR [place] (TRS356) opened to sterile field. 10:10:24 A 5 Fr sheath was inserted into the Right Femoral artery 10:11:10 A MULTIPACK JL 4.0 5Fr catheter was advanced over the wire and used for Procedure. 10:12:18 LCA angiography performed. 10:12:20 Injector settings: Ml/sec: 3, Volume: 6, 10:12:55 Catheter exchanged over wire. 10:13:53 A MULTIPACK 3DRC 5Fr catheter was advanced over the wire and used for Procedure. 10:14:09 RCA angiography performed. 10:14:16 Injector settings: Ml/sec: 3, Volume: 6, 10:14:37 Catheter exchanged over wire. 10:14:43 A MULTIPACK Pigtail 5 Fr catheter was advanced over the wire and used for Procedure. 10:15:37 LV gram done using HARKINS 10:16:01 LV hemodynamics recorded. 10:16:04 Injector settings: Ml/sec: 5, Volume: 15, 10:16:10 EF : 60 % 10:16:24 Catheter exchanged over wire. 10:16:28 Proceeding to intervention. 10:17:31 Lab Result : eGFR NONAFRICAN 66 ml/min 10:17:31 Lab Result : Creatinine 0.9 mg/dl 10:17:31 Lab Result : BUN 17 mg/dl 10:18:18 Use device set KENNEDY PCI 10:18:24 SHEATH 6FR [place] (IIW144) opened to sterile field. 10:18:30 INFLATOR Merit Artie (ME2143) opened to sterile field. 10:18:34 BMW 300cm Stirum 2 J wire ([id number]) opened to sterile field. 10:18:37 TUBING High Pressure Extension Tubing (Kennedy) (OE6743I) opened to sterile field. 10:18:58 Sheath upsized to a 6 Fr Short. 10:19:12 GUIDE 6FR XBLAD 3.5 catheter ([id number]) opened to sterile field. 10:19:18 6 Fr XBLAD 3.5 guide catheter was inserted over the wire 10:19:22 BMW 300 wire advanced. 10:19:24 Wire advanced across lesion. 10:19:46 Pre PCI Site: [place] Ramus has ?% stenosis. 10:20:46 Heparin Bolus 10,000 units I.V. was administered by Tanvir Mensah RN; for anticoagulation; verified with dr benavides Verbal order read back and verified. 10:21:06 Pre PCI Site: [place] mLAD has 80% stenosis. 10:23:38 Inflate balloon Inflation number: 1 A EUPHORA 3.0 x 20 Balloon ([id number]) was prepped and advanced across the Mid LAD 80, then inflated to 12 URMILA for 0:00 (min:sec) . 10:24:12 Inflation number: 2 The EUPHORA 3.0 x 20 Balloon ([id number]) was reinflated across the Mid LAD , to 13 URMILA for 0:00 (min:sec) . 10:25:07 Balloon removed over the wire. 10:26:35 Wire removed. 10:26:35 Guide catheter removed. 10:26:50 EXOSEAL 6Fr (EX600) opened to sterile field. 10:26:52 Fluoroscopy time 06.80 minutes. 10:27:03 Fluoroscopy dose: 1285 mGy 10:27:03 Flurop Dose total: 1285 10:27:08 Dose Area Product 99477 mGy/cm. 10:27:13 Contrast amount:Isovue 370 81ml. 10:28:33 Procedure ended.(Physican Out) 10:28:41 Maximum allowable dose exceeded? No. 10:28:42 Sharps counted by scrub and verified by R.N. 10:28:52 Post-op/insertion site Right Femoral artery dressed using a 4 x 4 and Tegaderm. 10:28:58 Post right femoral artery:stable, soft, clean and dry 10:29:00 Post Procedure Pulses reassessed and unchanged 10:29:04 Post procedure: right dorsailis pedis pulse Doppler. 10:29:07 Post-procedure physical assessment completed. ASA score P 2 - A patient with mild systemic disease as per Bi Benavides MD. 10:29:09 Post procedure rhythm: unchanged. 10:29:12 Estimated blood loss: 10 ml 10::13 Post procedure instruction explained to patient.Patient verbalizes understanding. 10:29:13 Patient needs reinforcement of post procedure teaching. 10:29:42 Procedure type changed to Cath procedure, Diagnostic procedure, LHC, C w/Coronaries, Sedation Charges, Moderate Sedation up to 30 minutes, PCI procedure, PTCA, PTCA Initial, Hemochron ACT Test 10:29:52 Plavix 75 mg P.O. was administered by Tanvir Mensah RN; for antiplatelet therapy; Verbal order read back and verified. 10:30:48 Procedure and supply charges have been captured, reviewed, submitted and are correct. 10:30:51 Procedure Complication : No complications 10:31:22 Vital chart was stopped 10:31:24 [facility] Findings: MVD- PCI performed (see procedure note) 10:31:25 Operative report dictated upon procedure completion. 10:31:26 See physician's report for complete and final results. 10:31:30 Report given to Pre/Post Procedure Room. 10:31:33 Patient transfered to Pre/Post Procedure Room with Stretcher. 10:31:35 Procedure ended. 10:31:35 Full Disclosure recording stopped 10:32:44 ACC-PCI Only Patient was given prescriptions, or instructed by Bi Benavides MD to start/continue the following medications upon discharge: Plavix 10:32:45 End room use (Document Last) 10:33:25 End room use (Document Last) 10:33:56 ACT drawn and resulted at out of range high seconds. (normal therapeutic range 180-240 seconds). 10:34:11 End room use (Document Last) 10:34:40 added a 2nd tagaderm to go over pre existing skin tear. Intervention Summary Intervention Notes Time ActionType Lesion and Equipment Action# Pressure Duration Attributes Used 10:23:38 Inflate Mid LAD EUPHORA 1 12 00:00 balloon 3.0 x 20 Balloon ([id number]) 10:24:12 Reinflate Mid LAD EUPHORA 2 13 00:00 balloon 3.0 x 20 Balloon ([id number]) Device Usage Item Name Manufacture Quantity Catalog Hospital Part Current Minimal Lot# / Number Charge Number Stock Stock Serial# Code ACIST Acist 1 66014 295872 741888 079242 20 Syringe Medical (42334) Systems Inc Medline Cath Medline 1 [id number] 306880 61978 895597 5 Pack ([id number]) Bag Decanter Microtek 1 2001S 384282 01953 919927 5 (2001S) Medical Inc. ACIST Hand Acist 1 88561 801022 652130 903299 5 Control Medical (89583) Systems Inc ACIST Acist 1 61681 650310 246450 803995 5 Manifold Medical (23653) Systems Inc EMERALD Cardinal 1 502-455 099299 849711 787432 5 Guide Wire Health (502455) DIAGNOSTIC Cardinal 1 [id number] 398600 58906 261386 30 Multipack Health 5Fr catheter set (DA1495) NEEDLE Merit Merit 1 [id number] 584961 278179 679242 5 18G 9cm Medical Percutaneous Entry (DS18H35V) SHEATH 5FR Terumo 1 XFI230 415095 810207 407905 5 [place] (RPN796) MULTIPACK JL Cardinal 1 641546 5 4.0 5Fr Health catheter MULTIPACK Cardinal 1 819176 5 3DRC 5Fr Health catheter MULTIPACK Cardinal 1 912123 5 Pigtail 5 Fr Health catheter SHEATH 6FR Terumo 1 RME303 479609 973216 101418 40 [place] (DNP477) INFLATOR Merit 1 XY7493 246693 360376 044238 15 Merit Medical BasixCompak (HO5243) BMW 300cm Gregory 1 [id number] 777215 447996 950608 5 Stirum 2 Vascular J wire (4887037Y) TUBING High Merit 1 [id number] 158636 96833 356529 10 Pressure Medical Extension Tubing (Benavides) (KH2162V) GUIDE 6FR Cardinal 1 [id number] 692025 354242 506515 10 XBLAD 3.5 Health catheter (91557991) EUPHORA 3.0 Medtronic 1 [id number] 674282 845134 662813 5 [id number] x 20 Balloon ([id number]) EXOSEAL 6Fr Cardinal 1 EX600 450505 259163 041107 10 (EX600) Health Signature Audit [place] Stage Time Signature Unsigned Intra-Procedure 12/27/2019 Gay Saucedo 10:33:25 AM RT(R) Intra-Procedure 12/27/2019 Tanvir Mensah RN 10:34:11 AM Intra-Procedure 12/27/2019 Bi Benavides MD 10:35:04 AM Signatures Performing Physician : Signature : Bi Benavides MD Date : Time : Nurse : Tanvir Mensah RN Signature : Date : Time : Monitor : Gay Saucedo Signature : RT Date : Time : [address] [address]
[2019-12-27] MEDS ORDERED: TYLENOL W/CODEI1 TAB PO (09:19)
[2019-12-27 09:34] VITALS: BP 155/85; Ht 170.2 cm; Wt 151.8 kg
[2019-12-27 09:47] LABS: BASOPHILS 0.1 % (0-2); EOSINOPHILS 1.9 % (0-7); HEMATOCRIT 40.6 % (36.0-48.0); HEMOGLOBIN 12.4 g/dL (12-16); IMMATURE GRANULOCYTES 0.1 % (0-5); LYMPHOCYTES 12.8 % (15-50); MCH 27.4 pg (26.0-34.0); MCHC 30.5 g/dL (31.0-37.0); MCV 89.8 fL (80.0-100.0); MEAN PLATELET VOLUME 8.5 fL (7.4-10.4); MONOCYTES 5.1 % (2-11); PLATELET COUNT 301 10x3/uL (130-400); RBC 4.52 10x6/uL (4.00-5.40); RDW 14.6 % (11.5-14.5); WBC 8.3 10x3/uL (4.8-10.8)
[2019-12-27 10:09] LABS: ANION GAP 11.4 mmol/L (8-16); CALCIUM 9.2 mg/dL (8.5-10.1); CARBON DIOXIDE 27.6 mmol/L (21.0-32.0); CHOL - HDL RATIO 2.3 ratio (2.3-4.1); CREATININE - SERUM 0.9 mg/dL (0.6-1.3); LDL-HDL RATIO 1.1 ratio (1.5-3.5)
--- NOTE | 2019-12-27 10:46 | NUR ---
PT ARRIVED BY STRETCHER. PLACED ON MONITORS. ASSESSMENT COMPLETED. VSS AT THIS TIME. AT BEDSIDE.
--- NOTE | 2019-12-27 11:00 | NUR ---
RIGHT GROIN DRESSING C/D/I. NO S/S OF HEMATOMA NOTED. CALL LIGHT WITHIN REACH. VSS AT THIS TIME. PT C/O SOME CHRONIC BACK PAIN. NOTIFIED DR. ROSARIO. ORDERS RECEIVED FOR PAIN MEDICATION.
--- NOTE | 2019-12-27 11:30 | NUR ---
PT RESTING COMFORTABLY. REPORTS PAIN 6/10 AT THIS TIME. IS IMPROVING WITH PAIN MEDICATION. VSS. RIGHT GROIN DRESSING C/D/I. NO S/S OF HEMATOMA NOTED.
--- NOTE | 2019-12-27 12:10 | NUR ---
PT RESTING COMFORTABLY. VSS. RIGHT GROIN DRESSING C/D/I. NO S/S OF HEMATOMA NOTED. CALL LIGHT WITHIN REACH. FAMILY AT BEDSIDE.
--- NOTE | 2019-12-27 12:40 | NUR ---
RIGHT GROIN DRESSING C/D/I. NO S/S OF HEMATOMA NOTED. CALL LIGHT WITHIN REACH. VSS AT THIS TIME.
--- NOTE | 2019-12-27 13:30 | NUR ---
RIGHT GROIN DRESSING D/I. NO S/S OF HEMATOMA NOTED. PT HAS NICKEL SIZE BLOOD NOTED TO DRESSING FROM SKIN TEAR. HEAD OF BED INC TO 30 DEGREES. SET UP WITH SANDWICH TRAY AND DRINK. DENIES NAUSEA AT THIS TIME.
--- NOTE | 2019-12-27 14:00 | NUR ---
DISCUSSED DISCHARGE INSTRUCTIONS WITH PT AND PT'S FAMILY. THEY VOICED UNDERSTANDING. PIV D/C'D WITH CATH TIP INTACT. TOLERATED WELL. NO NEW BLEEDING NOTED TO RIGHT GROIN DRESSING AT THIS TIME. VSS. PT INSTRUCTED TO GET UP AND DRESSED AT THIS TIME. NO ASSISTANCE NEEDED. CALL LIGHT WITHIN REACH.
--- NOTE | 2019-12-27 14:20 | NUR ---
PT VOIDED WITHOUT DIFFICULTY. PERICARE GIVEN.
--- NOTE | 2019-12-27 14:30 | NUR ---
PT TAKEN DOWN TO VEHICLE BY WHEELCHAIR. NO S/S OF DISTRESS NOTED. ALL BELONGINGS AND PAPERWORK IN HAND.
== END 2019-12-27 14:30 | disposition home or self-care (01) ==
LOC: D.CATH 08:42
PROVIDERS: ATTEND Internal Medicine Cardiovascular Disease
DX: I25.110 Atherosclerotic heart disease of native coronary artery with unstable angina pectoris (principal); E11.9 Type 2 diabetes mellitus without complications; I10 Essential (primary) hypertension; J44.9 Chronic obstructive pulmonary disease, unspecified; K21.9 Gastro-esophageal reflux disease without esophagitis; Z79.84 Long term (current) use of oral hypoglycemic drugs

== ENCOUNTER 2020-11-09 06:52 | Day surgery (SDC) | payer MEDICARE, OTHER ==
[~2020-11-09] VITALS: Ht 170.2 cm; Wt 145.5 kg
--- NOTE | ~2020-11-09 | HEMODYNAMI ---
PATIENT:HERO ROBERSON MEDICAL RECORD: [id number] : 48 LOCATION:[facility] ADMISSION DATE: 11/09/20 Generatedon:110:47 Patient name: HERO ROBERSON Patient #: [id number] SSN: [id number] : 1950 Date of study: 11/09/2020 Page: Of Hemodynamic Procedure Report Patient Data Patient Demographics Procedure consent was obtained First Name: HERO Gender: Female Last Name: DA : 1950 [facility] Initial: D Age: 70 year(s) Patient #: [id number] Race: SSN: [id number] Additional ID: [id number] Contact details Address: [address] [place] [address] State: [place] City: [place] Zip code: [address] Past Medical History Allergies: No known allergies Admission Admission Data Admission Date: 11/09/2020 Admission Time: 6:52 Arrival Date: 11/09/2020 Arrival Time: 0:00 Admit Source: Other Insurance Payor: Medicare [facility] #: [id number] Height (in.): 67 BSA: 2.47 (m2) Height (cm.): 170.18 BMI: 50.22 (kg/m2) Weight (lbs.): 320.66 Weight (kg.): 145.45 Lab Results Lab Result Date: 11/09/2020 Lab Result Time: 0:00 Biochemistry Name Units Result Min Max BUN mg/dl 14 --(--*-)-- 7 18 Creatinine mg/dl 1.1 --(--*-)-- 0.6 1.3 eGFR ml/min 52 *-(----)-- 90 120 NONAFRICAN CBC Name Units Result Min Max Hematocrit % 36.8 *-(----)-- 42 54 Hemoglobin g/dl 11.5 *-(----)-- 13.5 17.5 Procedure Procedure Types Cath Procedure Diagnostic Procedure [facility] w/Coronaries Sedation Charges Moderate Sedation 10-24 minutes Procedure Description Procedure Date Procedure Date: 11/09/2020 Procedure Start Time: 10:29 Procedure End Time: 10:44 Procedure Staff Name Function Bi Benavides MD Performing Physician Camelia Mcgraw RT Monitor Tanvir Mensah RN Nurse Gay Saucedo RT Scrub Procedure Data Cath Procedure Fluoroscopy Diagnostic fluoroscopy Total fluoroscopy Time: 3.7 time: 3.7 min min Diagnostic fluoroscopy Total fluoroscopy dose: 853 dose: 853 mGy mGy Contrast Material Contrast Material Type Amount (ml) Isovue 300 62 Entry Location Entry Primary Successful Side Size Upsize Upsize Entry Closure Succes sful Closure Location (Fr) 1 (Fr) 2 (Fr) Remarks Device Remarks Femoral Right 5 Fr Exoseal artery Estimated blood loss: 5 ml Diagnostic catheters Device Type Used For End Catheter Placement MULTIPACK JL 4.0 5Fr Left Coronary catheter Angiography MULTIPACK 3DRC 5Fr Right Coronary catheter Angiography MULTIPACK Pigtail 5 Fr LV Angiography catheter Procedure Complications No complications Procedure Medications Medication Administration Route Dosage Oxygen etCO2 Nasal cannula 2 l/min Lidocaine 2% added to field 20 Heparin Flush Bag added to field 2 bags (1000units/500ml NS) 0.9% NaCl I.V. 100 ml/hr Versed I.V. 1 mg Fentanyl I.V. 50 mcg Versed I.V. 1 mg Fentanyl I.V. 50 mcg Hemodynamics Rest BSA: 2.47 (m2) HGB: 11.5 (g/dl) O2 Consumption: Estimated: 248.35 (ml/min) O2 Co nsumption indexed: Estimated:100.55 (ml/min/m) Heart Rate: 93 (bpm) Pressure Samples Time Site Value (mmHg) Purpose Heart Use Rate(bpm) 10:40 LV 142/22,55 Snapshot 91 10:41 AO 145/84(110) Pullback 82 10:41 LV 140/-5,-8 Pullback 82 Gradients Valve Time Site 1 Site 2 Mean SEP/DFP Peak To Heart Use (mmHg) (sec/min) Peak Rate (mmHg) (bpm) Aortic 10:41 LV AO 0 4 0 82 140/-5,-8 145/84(110) Calculations Valve P-P Mean Valve Index Valve Source Name Gradient Area Flow (cm2) Aortic 0 0 0 0 Snapshots Pre Cath Intra NCS Post Cath Vital Signs Time Heart Resp SPO2 etCO2 NIBP (mmHg) Rhythm Pain Sedation Rate (ipm) (%) (mmHg) Status Level (bpm) 10:15:30 90 15 96 42.1 Measuring NSR 0 (11) 10(A) , No pain 10:16:52 90 13 88 42.1 Time NSR 0 (11) 10(A) Exceeded , No pain 10:21:28 91 12 99 38.3 147/85(123) NSR 0 (11) 10(A) , No pain 10:25:57 90 13 99 40.6 150/82(110) NSR 0 (11) 10(A) , No pain 10:30:23 90 11 98 37.6 139/107(127) NSR 0 (11) 9(A) , No pain 10:35:22 90 17 98 42.9 Measuring NSR 0 (11) 9(A) , No pain 10:36:01 91 14 98 44.4 142/93(122) NSR 0 (11) 9(A) , No pain 10:40:27 98 11 98 45.1 142/83(129) NSR 0 (11) 10(A) , No pain 10:46:01 95 12 98 45.1 160/90(122) NSR 0 (11) 10(A) , No pain Medications Time Medication Route Dose Verified Delivered Reason Notes Eff ectiveness by by 10:13:52 Oxygen etCO2 2 Bi Buffie used for Nasal l/min Kennedy Mensah RN procedure cannula 10:14:00 Lidocaine 2% added 20ml Bi Bi for local to vial Kennedy Benavides MD anesthetic field 10:14:08 Heparin Flush added 2 Bi Bi used for Bag to bags Kennedy Benavides MD procedure (1000units/500ml field NS) 10:14:15 0.9% NaCl I.V. 100 Bi Buffie Per ml/hr Kennedy Mensah RN physician 10:23:25 Versed I.V. 1 mg Bi Buffie for Kennedy Mensah RN sedation 10:23:30 Fentanyl I.V. 50 Bi Buffie for jonatan Mensah RN sedation 10:29:25 Versed I.V. 1 mg Bi Buffie for Kennedy Mensah RN sedation 10:29:29 Fentanyl I.V. 50 Bi Buffie for mcg Kennedy Mensah RN sedation Procedure Log Time Note 9:47:11 Informed consent obtained and on chart 9:47:21 Diagnostic Cath Status : Elective 9:47:35 Admit Source: Other 9:47:36 Arrival Date: 11/09/2020 12:00:00 AM 9:47:46 Insurance Payor : Medicare 9:48:17 Patient Height : 67 inches 9:48:32 Patient allergic to No known allergies 9:49:45 ACC Patient presents with Stable Angina CCS Anginal Class 2--Slight limitation of ordinary activity. 9:49:47 Procedure Status Elective Heart Cath (OP). 9:49:49 Time tracking: Regular hours (M-F 7:00 - 5:00) 9:49:53 Plan of Care:Hemodynamics will remain stable., Cardiac rhythm will remain stable., Comfort level will be maintained., Respiratory function will remain adequate., Patient/ family verbilizes understanding of procedure., Procedure tolerated without complication., Recovers from procedure without complications.. 9:50:08 H&P Date Dictated: 10/30/2020 Within 30 days and on chart.. 9:50:11 Pre-procedure instructions explained to patient. 9:50:12 Pre-op teaching completed and patient verbalized understanding. 9:50:13 Family in waiting room. 9:50:15 Patient NPO since Midnight. 9:51:55 Alarms reviewed by R. N. 9:51:55 Sharps counted by scrub and verified by R.N. 10:02:12 Camelia Mcgraw RT(R) sent for patient. Start room use. 10:03:13 Lab Result : Creatinine 1.1 mg/dl 10:03:13 Lab Result : BUN 14 mg/dl 10:03:13 Lab Result : eGFR NONAFRICAN 52 ml/min 10:03:13 Lab Result : Hemoglobin 11.5 g/dl 10:03:13 Lab Result : Hematocrit 36.8 % 10:03:20 Patient Weight : 320.66 lbs 10:03:30 Lab results completed and on chart. 10:03:34 Stress Test: no; N/A . 10:06:21 Patient received from Pre/Post Procedure Room to [facility] 2 Alert and oriented. Tansferred to table in Supine position. 10:06:24 Warm blankets applied, and dora hugger turned on for patient comfort. 10:06:24 Correct patient and procedure confirmed by team. 10:06:25 ECG and BP/O2 sat monitors applied to patient. 10:06:30 Is the patient allergic to Iodine/contrast media? No. 10:13:41 Vital chart was started 10:13:52 Oxygen 2 l/min etCO2 Nasal cannula was administered by Tanvir Mensah RN; used for procedure; Verbal order read back and verified. 10:14:00 Lidocaine 2% 20ml vial added to field was administered by Bi Benavides MD; for local anesthetic; Verbal order read back and verified. 10:14:08 Heparin Flush Bag (1000units/500ml NS) 2 bags added to field was administered by Bi Benavides MD; used for procedure; Verbal order read back and verified. 10:14:15 0.9% NaCl 100 ml/hr I.V. was administered by Tanvir Mensah RN; Per physician; Verbal order read back and verified. 10:15:31 Was the patient premedicated? Yes 10:15:34 Is patient on blood thinner?Yes 10:15:35 Patient diabetic? Yes. 10:15:36 If diabetic: On Metformin? Yes 10:15:39 If on Metformin: Last Dose? 11/08/2020 10:15:42 Previous problem with sedation/anesthesia? No ? 10:15:44 Snore? Yes 10:15:48 Sleep apnea? No 10:15:55 Deviated septum? No 10:15:56 Opens mouth fully? Yes 10:15:57 Sticks out tongue? Yes 10:15:59 Airway obstruction? Yes copd 10:16:02 Dentures? No ? 10:18:44 NEEDLE Merit 18G 9cm Percutaneous Entry ([id number]) opened to sterile field. 10:19:06 Pre procedure: right dorsailis pedis pulse 2+ Normal; easily identifiable; not easily obliterated 10:19:09 Pre procedure: left dorsailis pedis pulse 2+ Normal; easily identifiable; not easily obliterated 10:19:12 Patient pain scale 0/10 ?. 10:19:19 IV patent on arrival in left forearm with 0.9% NaCl at [facility]. 10:19:24 Right groin area was prepped with chlora-prep and draped in sterile fashion 10:19:34 Physician arrived 10:19:34 --------ALL STOP TIME OUT------ 10:19:35 Final Timeout: patient, procedure, and site verified with staff and physician. All members of the team are in agreement. 10:19:38 Right groin site verified by team. 10:19:40 Fire Safety Assessment: A--An alcohol-based skin anteseptic being used preoperatively., C--Open oxygen or nitrous oxide is being used., D--An ESU, laser, or fiber-optic light is being used. 10:19:43 Physical assessment completed. ASA score P 2 - A patient with mild systemic disease as per Bi Benavides MD. 10:19:54 3a) 45-59 Moderately reduced kidney function. 10:21:01 Maximum allowable contrast dose (3.7 X eGFR X 0.75)144 ml. 10:21:05 Sedation plan: IV Moderate Sedation Medication:Versed, Fentanyl 10:21:07 Use device set Femoral Dx 10:21:08 ACIST Syringe (18367) opened to sterile field. 10:21:09 Bag Decanter (2002S) opened to sterile field. 10:21:09 Medline Cath Pack ([id number]) opened to sterile field. 10:21:10 ACIST Hand Control (61764) opened to sterile field. 10:21:11 ACIST Manifold (84219) opened to sterile field. 10:21:11 DIAGNOSTIC Multipack 5Fr catheter set (HR2966) opened to sterile field. 10:21:12 Tegaderm 4 x 4 (1626W) opened to sterile field. 10:21:13 SHEATH 5FR [place] (GAE263) opened to sterile field. 10:21:14 EMERALD Guide Wire (687-715) opened to sterile field. 10:23:25 Versed 1 mg I.V. was administered by Tanvir Mensah RN; for sedation; Verbal order read back and verified. 10:23:30 Fentanyl 50 mcg I.V. was administered by Tanvir Mensah RN; for sedation; Verbal order read back and verified. 10:29:25 Versed 1 mg I.V. was administered by Tanvir Mensah RN; for sedation; Verbal order read back and verified. 10:29:29 Fentanyl 50 mcg I.V. was administered by Buffie Mensah RN; for sedation; Verbal order read back and verified. 10::40 Procedure started. 10::40 Full Disclosure recording started 10::43 Local anesthetic to right femoral artery with Lidocaine 2% by Bi Benavides MD.INITIAL ACCESS ONLY 10::52 A 5 Fr sheath was inserted into the Right Femoral artery 10:30:15 Baseline sample Acquired. 10:30:20 Rhythm: sinus tachycardia 10:33:02 A MULTIPACK JL 4.0 5Fr catheter was advanced over the wire and used for Left Coronary Angiography. 10:34:49 LCA angiography performed. 10:34:52 Injector settings: Ml/sec: 3, Volume: 6, 10:35:20 Zero performed for pressure channel P1 10:35:25 Zero performed for pressure channel P1 10:35:30 Zero performed for pressure channel P1 10:35:35 Zero performed for pressure channel P1 10:35:40 Zero performed for pressure channel P1 10:36:54 Catheter removed. 10:37:03 A MULTIPACK 3DRC 5Fr catheter was advanced over the wire and used for Right Coronary Angiography. 10:37:40 RCA angiography performed. 10:37:43 Injector settings: Ml/sec: 3, Volume: 6, 10:38:37 Catheter removed. 10:38:43 Zero performed for pressure channel P1 10:38:50 Zero performed for pressure channel P1 10:38:59 Zero performed for pressure channel P1 10:39:05 Zero performed for pressure channel P1 10:39:16 Zero performed for pressure channel P1 10:39:29 A MULTIPACK Pigtail 5 Fr catheter was advanced over the wire and used for LV Angiography. 10:40:40 LV hemodynamics recorded. 10:40:41 LV gram done using HARKINS 10::43 Injector settings: Ml/sec: 5, Volume: 15, 10:40:55 EF : 55 % 10:41:02 EXOSEAL 5Fr (EX500) opened to sterile field. 10:41:07 Catheter removed. 10:41:22 Sheath removed intact; hemostasis achieved with Exoseal to the Right Femoral artery. 10:42:26 Procedure ended.(Physican Out) 10:42:30 Fluoroscopy time 03.70 minutes. 10:42:33 Flurop Dose total: 853 10:42:33 Fluoroscopy dose: 853 mGy 10:42:45 Dose Area Product 04561 mGy/cm. 10:42:53 Contrast amount:Isovue 300 62ml. 10:43:05 Maximum allowable dose exceeded? No. 10:43:06 Sharps counted by scrub and verified by R.N. 10:43:07 Insertion/operative site no bleeding no hematoma. 10:43:09 Post-op/insertion site Right Femoral artery dressed using a 4 x 4 and Tegaderm. 10:43:10 Post Procedure Pulses reassessed and unchanged 10:43:13 Post procedure rhythm: unchanged. 10:43:15 Estimated blood loss: 5 ml 10:43:16 Post procedure instruction explained to patient.Patient verbalizes understanding. 10:43:16 Patient needs reinforcement of post procedure teaching. 10:44:26 Procedure type changed to Cath procedure, Diagnostic procedure, LHC, [facility] w/Coronaries, Sedation Charges, Moderate Sedation 10-24 minutes 10:44:26 Procedure and supply charges have been captured, reviewed, submitted and are correct. 10:44:30 Procedure Complication : No complications 10:44:32 Vital chart was stopped 10:44:36 [facility] Findings: MVD- MD will discuss options w/ pt 10:44:45 Operative report dictated upon procedure completion. 10:44:46 See physician's report for complete and final results. 10:44:50 Report given to Pre/Post Procedure Room. 10:44:53 Patient transfered to Pre/Post Procedure Room with Stretcher. 10:44:55 Procedure ended. 10:44:55 Full Disclosure recording stopped 10:45:01 End room use (Document Last) 10:46:05 Pt having audible wheezing noted while lying flat on procedure table. Dr Benavides notified. 10:46:42 End room use (Document Last) 10:47:01 End room use (Document Last) Device Usage Item Name Manufacture Quantity Catalog Hospital Part Current Minimal Lot# / Number Charge Number Stock Stock Serial# Code NEEDLE Merit Merit 1 [id number] 662426 474063 5 18G 9cm Medical Percutaneous Entry ([id number]) ACIST Acist 1 45746 221217 362913 477250 20 Syringe Medical (18547) Systems Inc Bag Decanter Microtek 1 019311 80713 314353 5 () Medical Inc. Medline Cath Medline 1 [id number] 683958 00633 973174 5 Pack ([id number]) ACIST Hand Acist 1 96617 050618 530136 909682 5 Control Medical (26992) Systems Inc ACIST Acist 1 95908 999850 707636 722192 5 Manifold Medical (20763) Systems Inc DIAGNOSTIC Cardinal 1 [id number] 027465 15808 553549 30 Multipack Health 5Fr catheter set (TO5129) Tegaderm 4 x 3M 1 1626W 288207 181153 186950 5 4 (1626W) SHEATH 5FR Terumo 1 GEL238 490122 943668 216061 5 [place] (XKM889) EMERALD Cardinal 1 680-033 045964 523245 659202 5 Guide Wire Health (707-846) MULTIPACK JL Cardinal 1 928746 5 4.0 5Fr Health catheter MULTIPACK Cardinal 1 528793 5 3DRC 5Fr Health catheter MULTIPACK Cardinal 1 554802 5 Pigtail 5 Fr Health catheter EXOSEAL 5Fr Cardinal 1 EX500 917678 700903 695191 10 (EX500) Health Signature Audit [place] [facility] Time Signature Unsigned Intra-Procedure 11/09/2020 Camelia Mcgraw 10:46:43 AM RT(R) Intra-Procedure 11/09/2020 Tanvir Mensah RN 10:47:01 AM Intra-Procedure 11/09/2020 Bi Benavides MD 10:47:21 AM Signatures Performing Physician : Signature : Bi Benavides MD Date : Time : Monitor : aCmelia Mcgraw RT Signature : Date : Time : Nurse : Tanvir Menash RN Signature : Date : Time : [facility] [address] [place] [address]
[~2020-11-09 06:52] MED LIST changes: +CYMBALTA30 MG PO; +KLOR-CON 1010 MEQ PO; +METOLAZONE5 MG PO; +MUCINEX600 MG PO; +TESSALON PERLE100 MG PO
[2020-11-09] MEDS ORDERED: ISOSORBIDE MONO30 M1 PO (07:32)
[2020-11-09] MEDS ORDERED: KLOR-CON M2020 MEQ PO (07:33)
[2020-11-09] MEDS ORDERED: BAYER CHEWABLE81 MG PO (07:33)
[2020-11-09] MEDS ORDERED: BREO ELLIPTA 11 EACH INH (07:38)
[2020-11-09] MEDS ORDERED: INCRUSE ELLI62.5 MCG INH (07:39)
[2020-11-09 07:45] VITALS: BP 155/77; Ht 170.2 cm; Wt 145.5 kg
[2020-11-09 08:14] LABS: BASOPHILS 0.2 % (0-2); EOSINOPHILS 1.2 % (0-7); HEMATOCRIT 36.8 % (36.0-48.0); HEMOGLOBIN 11.5 g/dL (12-16); IMMATURE GRANULOCYTES 0.4 % (0-5); LYMPHOCYTE ABS# 1.75 10x3/uL (1.18-3.74); LYMPHOCYTES 15.2 % (15-50); MCH 27.7 pg (26.0-34.0); MCHC 31.3 g/dL (31.0-37.0); MCV 88.7 fL (80.0-100.0); MEAN PLATELET VOLUME 8.6 fL (7.4-10.4); MONOCYTES 5.6 % (2-11); NEUTROPHIL ABS# 8.93 10x3/uL (1.56-6.13); NEUTROPHILS 77.4 % (40-80); RBC 4.15 10x6/uL (4.00-5.40); RDW 15.4 % (11.5-14.5); WBC 11.5 10x3/uL (4.8-10.8)
[2020-11-09 08:15] LABS: ANION GAP 16.2 mmol/L (8-16); CALCIUM 9.3 mg/dL (8.5-10.1); CARBON DIOXIDE 22.8 mmol/L (21.0-32.0); CHOL - HDL RATIO 2.9 ratio (2.3-4.1); CREATININE - SERUM 1.1 mg/dL (0.6-1.3); LDL-HDL RATIO 1.4 ratio (1.5-3.5)
[2020-11-09 08:22] LABS: PLATELET COUNT 458 10x3/uL (130-400)
--- NOTE | 2020-11-09 11:00 | NUR ---
PT ARRIVED BY STRETCHER. PLACED ON MONITORS. ASSESSMENT COMPLETED. FAMILY AT BEDSIDE. CALL LIGHT WITHIN REACH.
--- NOTE | 2020-11-09 11:15 | NUR ---
RIGHT GROIN DRESSING C/D/I. NO S/S OF HEMATOMA NOTED. RIGHT PEDAL PULSE PALPABLE. RESTING COMFORTABLY. DENIES NAUSEA/PAIN. TOLERATING SIPS OF SODA. NO NEEDS AT THIS TIME.
--- NOTE | 2020-11-09 11:45 | NUR ---
RIGHT GROIN DRESSING C/D/I. NO S/S OF HEMATOMA NOTED. PT RESTING COMFORTABLY. VSS AT THIS TIME. FAMILY AT BEDSIDE.
--- NOTE | 2020-11-09 11:50 | NUR ---
DR. ROSARIO ROUNDED AND SPOKE WITH PT AND PT'S FAMILY.
--- NOTE | 2020-11-09 12:20 | NUR ---
RIGHT GROIN DRESSING C/D/I. NO S/S OF HEMATOMA NOTED. RIGHT PEDAL PULSE PALPABLE. HEAD OF BED INC TO 30 DEGREES. TOLERATED WELL. SET UP WITH SANDWICH TRAY AND DRINK. DENIES NAUSEA/PAIN.
--- NOTE | 2020-11-09 13:05 | NUR ---
RIGHT GROIN DRESSING C/D/I. NO S/S OF HEMATOMA NOTED. PIV D/C'D WITH CATH TIP INTACT. TOLERATED WELL. DISCUSSED DISCHARGE INSTRUCTIONS WITH PT AND PT'S FAMILY. THEY VOICED UNDERSTANDING.
--- NOTE | 2020-11-09 13:11 | NUR ---
PT TAKEN TO RESTROOM BY WHEELCHAIR. NO S/S OF DISTRESS NOTED. VOIDED WITHOUT DIFFICULTY. RIGHT GROIN DRESSING C/D/I. NO S/S OF HEMATOMA NOTED.
--- NOTE | 2020-11-09 13:15 | NUR ---
PT TAKEN OUT TO VEHICLE BY PERSONAL WHEELCHAIR. NO S/S OF DISTRESS NOTED. ALL BELONGINGS AND PAPERWORK IN HAND.
== END 2020-11-09 13:15 | disposition home or self-care (01) ==
LOC: D.CATH 06:52
PROVIDERS: ATTEND Internal Medicine Cardiovascular Disease
DX: I25.110 Atherosclerotic heart disease of native coronary artery with unstable angina pectoris (principal); R07.9 Chest pain, unspecified; R06.00 Dyspnea, unspecified

== ENCOUNTER → 2021-01-15 13:11 | Outpatient (CLI) | payer MEDICARE, OTHER ==
[2020-11-09 07:45] VITALS: BMI 50.2
[~2021-01-15 13:11] MED LIST changes: +BREO ELLIPTA 11 EACH INH; +INCRUSE ELLI62.5 MCG INH; +ISOSORBIDE MONO30 M1 PO; +KLOR-CON M2020 MEQ PO
== END | disposition home or self-care (01) ==
LOC: D.RT 13:00
PROVIDERS: ATTEND Internal Medicine Pulmonary Disease
DX: J44.9 Chronic obstructive pulmonary disease, unspecified (principal); Z11.52 Encounter for screening for COVID-19